=== PATIENT | female | born 1940 | race Caucasian/White ===

== ENCOUNTER 2017-01-13 01:49 | Observation (INO) | payer MEDICARE, OTHER ==
[2017-01-13 03:08] LABS: Anion Gap 15 mmol/L (10-20); BUN (Urea Nitrogen) 13 mg/dL (9.8-20.1); Calc. Creatinine Clearance 0 mL/min (70-130); Calcium 8.9 mg/dL (7.8-10.44); Carbon Dioxide 24 mmol/L (23-31); Chloride 100 mmol/L (98-107); Estimated GFR-MDRD 82; Magnesium 2.7 mg/dL (1.6-2.6)
[2017-01-13 04:17] LABS: Bilirubin Negative (Negative); Blood, Urine Negative (Negative); Glucose, Urine (Dipstick) Negative (Negative); Ketone, Urine Trace mg/dL (Negative); Nitrite Negative (Negative); Protein, Urine (Dipstick) Negative (Neg-Trace); Urobilinogen 0.2 mg/dL (0.2-1.0)
[2017-01-13] MEDS ORDERED: methylPREDNISolone Sod Succ/PF 125 MG/2 ML VIAL IVP SCH (06:45)
[2017-01-13] MEDS ORDERED: Acetaminophen 325 MG TAB PO PRN (07:41)
[2017-01-13 07:51] VITALS: BMI 32.5
[2017-01-13 08:25] LABS: Troponin I Less than 0.010 ng/mL (< 0.028)
[2017-01-13] MEDS ORDERED: Senokot 8.6 MG TAB PO PRN (10:28)
--- NOTE | 2017-01-13 10:47 | HP ---
ADMITTING PHYSICIAN: Dr. René Choudhury PRIMARY CARE PHYSICIAN: Dr. Casiano CHIEF COMPLAINT: Cough, shortness of breath. HISTORY OF PRESENT ILLNESS: The patient is a pleasant 76-year-old female with history of hypertensio n and possible COPD. The patient reports that 4-5 days she began to experience excessive coughing. She has also noticed some green sputum, her disintegrator feeder, Dr. Casiano, has prescribed doxycycline. Sh e reports that she had not received any relief and presented to the ER for the aforementioned symptom s. The patient was seen and assessed at [place] [facility] and EKG and chest x-ray were performed and t he patient was noted to have a prolonged QT interval of approximately 514 milliseconds and she was ad mitted for assessment of this situation. REVIEW OF SYSTEMS: The following complete review of systems was negative, unless otherwise mentioned in the HPI or below: Constitutional: Weight loss or gain, ability to conduct usual activities. Skin: Rash, itching. Eyes: Double vision, pain. ENT/Mouth: Nose bleeding, neck stiffness, pain, tenderness. Cardiovascular: Palpitations, dyspnea on exertion, orthopnea. Respiratory: Shortness of breath, wheezing, cough, hemoptysis, fever or night sweats. Gastrointestinal: Poor appetite, abdominal pain, heartburn, nausea, vomiting, constipation, or diarrhea. Genitourinary: Urgency, frequency, dysuria, nocturia. Musculoskeletal: Pain, swelling. Neurologic/Psychiatric: Anxiety, depression. Allergy/Immunologic: Skin rash, bleeding tendency. PAST MEDICAL HISTORY: Hypertension, hyperlipidemia, chronic bronchitis. PAST SURGICAL HISTORY: Positive for left knee replacement, x2, appendectomy, hysterectomy, left breast lumpectomy. PSYCHIATRIC HISTORY: No previous psychiatric history. SOCIAL HISTORY: The patient drinks rarely. Denies drug use. She is currently still smoking at this time and has been smoking half a pack for approximately 15 years. FAMILY HISTORY: Reviewed and noncontributory to this case. DRUG ALLERGIES: PENICILLINS. HOME MEDICATIONS: Include aspirin 81 mg every day, natural Q10 10 mg every day, albuterol inhaler, l osartan 12.5 mg every day, prednisone 20 mg every day, Lexapro 20 mg every day, Crestor 10 mg at bedt davian, Montelukast 10 mg every day. PHYSICAL EXAMINATION: VITAL SIGNS: Temperature of 98.4, blood pressure 138/82, pulse 94, respirations 20, satting 94% on r oom air. GENERAL: She is in no acute distress. HEENT: Normocephalic, atraumatic. Eyes normal, PERRL. Extraocular muscles intact. NECK: Supple, full range of motion. Trachea midline. RESPIRATORY: There was bilateral expiratory wheezing, otherwise clear to auscultation. CARDIOVASCULAR: Regular rate and rhythm, no murmurs, regurg or gallops. ABDOMEN: Nontender, nondistended. Positive bowel sounds. EXTREMITIES: No clubbing, cyanosis or edema. NEUROLOGIC: No focal deficits. Cranial nerves II-XII grossly intact. SKIN: Skin is warm, dry, normal in color. PSYCHIATRIC: Normal affect. LABORATORY AND IMAGES: Once again, 12 lead EKG performed in the emergency department showed a prolon ged QTC of 514 milliseconds, which was an acute change. Chest x-ray shows no acute pulmonary disease . CMP shows sodium of 138, potassium 3.2, chloride 99, CO2 97, BUN 11, creatinine 0.66, glucose 120, calcium 9.0. Magnesium 2.7. CBC shows a white count 15, hemoglobin 12.9, hematocrit 38.3, platelet count 308, AST 32, ALT 39. BNP of 30.3, CK-MB of 1.0, troponin I less than 0.01. ASSESSMENT AND PLAN: 1. Chronic obstructive pulmonary disease exacerbation. 2. Prolonged QTC interval. 3. Hypertension. PLAN: The patient admitted to observation. We will continue to rule out for acute ischemic syndrome . Her magnesium is within normal limits at this time. The prolonged QT interval, may be secondary t o adverse effect from medication. Nevertheless, we will have Cardiology evaluation take place. We w ill also continue to rule out for ischemic condition.
[2017-01-13 11:20] LABS: Troponin I Less than 0.010 ng/mL (< 0.028)
--- NOTE | 2017-01-13 14:03 | CON ---
DATE OF CONSULTATION: 01/13/2017 The patient is a 76-year-old woman with a history of hypertension and carotid artery disease, who presented with dyspnea and was noted to have abnormal electrocardiogram. The patient has a history of cerebrovascular disease. The patient has a long history of tobacco abuse. She was recently diagnosed with bronchitis and started on doxycycline. The patient went to the emergency room when she felt weak and dyspneic. She was noted to have a prolonged QT interval and admitted for further evaluation. The patient denied having any palpitations. The patient denies having any chest pain. PAST MEDICAL HISTORY: 1. Cerebrovascular disease. 2. Hypertension. 3. Dyslipidemia. 4. Chronic obstructive pulmonary disease. 5. Depression. PAST SURGICAL HISTORY: , lumpectomy, hysterectomy, and appendectomy. SOCIAL HISTORY: The patient continues to abuse tobacco. ALLERGIES: PENICILLIN. MEDICATIONS ON ADMISSION: Lexapro 20 daily, Crestor 10 at bedtime, prednisone 20 daily, losartan 12.5 daily, aspirin 81 daily, and doxycycline 100 b.i.d. FAMILY HISTORY: No strong family history of coronary artery disease. REVIEW OF SYSTEMS: A 10-point system otherwise unremarkable. PHYSICAL EXAMINATION: GENERAL: This is a mildly ill-appearing woman. VITAL SIGNS: With a blood pressure of 121/70. NECK: Showed no jugular venous distention. LUNGS: Have coarse breath sounds bilateral. HEART: Regular rate and rhythm, normal S1 and S2 with no murmurs. ABDOMEN: Nondistended. EXTREMITIES: Showed trace edema. SKIN: Warm and dry. NEUROLOGIC EXAM: Nonfocal. VASCULAR: Radial related pulses are 2+. LABORATORY DATA: Sodium 135, potassium 3.6, chloride 100, bicarbonate 24, BUN 13, creatinine is 0.7, troponin less than 0.01. Her white blood cell count was 15.0, hemoglobin 12.9, hematocrit 38.3, and her platelets are 308. BNP was 30. EKG revealed normal sinus rhythm with a prolonged QT interval approximately 500. IMPRESSION: 1. Chronic obstructive pulmonary disease exacerbation. 2. Prolonged QT interval. 3. Cerebrovascular disease. 4. Hypertension. 5. Dyslipidemia. 6. Depression. This patient presents with a prolonged QT interval. She was recently placed on doxycycline which probably interacted with Lexapro. We would discontinue this antibiotic. We would hold the patient's Paxil if her QTC remains elevated. We will follow this patient with you through her hospitalization. [facility]
[2017-01-13 16:10] VITALS: BP 132/61; TEMP 98.3
[2017-01-13] MEDS ORDERED: Mometasone/Formoterol 120 PUFF INHALER INH SCH (18:30)
[2017-01-13] MEDS ORDERED: FLU VACC TS2017-18 (>65YR) 0.5 ML SYRINGE IM ONE (21:00)
[2017-01-13] MEDS ORDERED: Ubidecarenone 50 MG CAP PO SCH (21:00)
[2017-01-13] MEDS ORDERED: Non-Formulary Item 1 EACH (Budesonide-Formoterol [Symbicort 160-4.5] 2 PUFF) INH SCH (21:00)
[2017-01-13] MEDS ORDERED: Rosuvastatin 10 MG TAB PO SCH (21:00)
[2017-01-13] MEDS ORDERED: Montelukast Sodium 10 mg Tablet PO SCH (21:00)
[2017-01-13] MEDS ORDERED: SENNOSIDES PO SCH (21:00)
[2017-01-13] MEDS ORDERED: ROSUVASTATIN CALCIUM 10 MG PO SCH (21:00)
[2017-01-13] MEDS ORDERED: Senokot 8.6 MG TAB PO SCH (21:00)
[2017-01-13] MEDS ORDERED: Non-Formulary Item 1 EACH (Ubidecarenone [Coq-10] 100 MG) PO SCH (21:00)
--- NOTE | 2017-01-14 01:18 | DIS ---
DATE OF ADMISSION: 01/13/2017 DATE OF DISCHARGE: 01/13/2017 CHIEF COMPLAINT: Shortness of breath, cough. PRIMARY DISCHARGE DIAGNOSES: 1. Prolonged QT interval. 2. Chronic obstructive pulmonary disease. 3. Hypertension. HOSPITAL COURSE: The patient was admitted after an incidental finding of a prolonged QT was noted on EKG. Cardiology was consulted and it was felt that the patient's prolonged QT interval was from an interaction of the doxycycline and Lexapro. The patient had repeat EKGs with normal QT interval. Isis olmedo was deemed stable for discharge from Cardiology's viewpoint once the doxycycline and the SSRI were held. Patient denied any chest pain or any palpitations during her hospital stay. The patient will be discharged home and instructed to refrain from using the doxycycline. She will also be instructed to refrain from using her Lexapro until Tuesday. DISPOSITION: To home. DISCHARGE DIET: Cardiac, heart healthy. DISCHARGE MEDICATIONS: She is to resume her home medications except for doxycycline and she is to ho ld her Lexapro until TuesdayJanuary 16. FOLLOWUP: The patient is to follow up with her PCP within 7 days. PHYSICAL EXAMINATION: HEENT: Normocephalic, atraumatic. CARDIAC: Regular rate and rhythm. LUNGS: Clear to auscultation. ABDOMEN: Nontender, nondistended. EXTREMITIES: No clubbing, cyanosis or edema. CONSULTANTS: Dr. Tolentino, Cardiology. PROCEDURES: None.
[2017-01-14] MEDS ORDERED: LUT PO SCH (09:00)
[2017-01-14] MEDS ORDERED: Non-Formulary Item 1 EACH (Losartan/Hydrochlorothiazide [Losartan-Hctz 100-12.5 Mg Tab] 1 PO SCH (09:00)
[2017-01-14] MEDS ORDERED: [UNRECOGNIZED DRUG - OTHER] PO SCH (09:00)
[2017-01-14] MEDS ORDERED: Non-Formulary Item 1 EACH (Cholecalciferol (Vitamin D3) [Vitamin D3] 5,000 UNIT) PO SCH (09:00)
[2017-01-14] MEDS ORDERED: LYCOPENE PO SCH (09:00)
[2017-01-14] MEDS ORDERED: Aspirin 81 mg Enteric Coated Tablet PO SCH ×2 (09:00)
[2017-01-14] MEDS ORDERED: PATIENT'S HOME MEDICATION PO SCH (09:00)
[2017-01-14] MEDS ORDERED: predniSONE 20 MG TAB PO SCH (09:00)
[2017-01-14] MEDS ORDERED: Hydrochlorothiazide 25 MG TAB PO SCH (09:00)
[2017-01-14] MEDS ORDERED: Escitalopram Oxalate 20 mg Tablet PO SCH (09:00)
[2017-01-14] MEDS ORDERED: MULTIVIT MIN PO SCH (09:00)
[2017-01-14] MEDS ORDERED: Losartan 25 MG TAB PO SCH (09:00)
[2017-01-14] MEDS ORDERED: Multivitamin W/ Minerals 1 TAB PO SCH (09:00)
[2017-01-14] MEDS ORDERED: Non-Formulary Item 1 EACH (Gluc Su/Chondro Su A/Vit C/Mn [Glucosamine 1,500 Complex Capsu PO SCH (09:00)
--- NOTE | 2017-02-26 10:41 | EKG ---
Test Reason : Blood Pressure : / mmHG Vent. Rate : 085 BPM Atrial Rate : 085 BPM P-R Int : 182 ms QRS Dur : 088 ms QT Int : 432 ms P-R-T Axes : 081 040 026 degrees QTc Int : 514 ms Sinus rhythm with Premature atrial complexes Prolonged QT Abnormal ECG Confirmed by SEEMA BENAVIDES M.D. ([id number]), phone technician CORNEL PERRIN ([id number]) on 02/26/2017 10:40:47 AM Referred By: Confirmed By:SEEMA BENAVIDES M.D.
--- NOTE | 2017-02-26 10:41 | EKG ---
Test Reason : Blood Pressure : / mmHG Vent. Rate : 083 BPM Atrial Rate : 083 BPM P-R Int : 180 ms QRS Dur : 098 ms QT Int : 452 ms P-R-T Axes : 076 041 031 degrees QTc Int : 531 ms Sinus rhythm with Premature atrial complexes ST abnormality, possible digitalis effect Prolonged QT Abnormal ECG Confirmed by SEEMA BENAVIDES M.D. ([id number]), manuscript editor CORNEL PERRIN ([id number]) on 02/26/2017 10:40:46 AM Referred By: Confirmed By:SEEMA BENAVIDES M.D.
== END 2017-01-13 17:35 | disposition home or self-care (01) ==
LOC: ERS 01:49 → 2SW 04:14
PROVIDERS: ADMIT Internal Medicine; ATTEND Internal Medicine
DX: J44.9 Chronic obstructive pulmonary disease, unspecified (principal); I45.81 Long QT syndrome; I10 Essential (primary) hypertension; Z86.73 Personal history of transient ischemic attack (TIA), and cerebral infarction without residual deficits; E78.5 Hyperlipidemia, unspecified; F32.9 Major depressive disorder, single episode, unspecified; F17.200 Nicotine dependence, unspecified, uncomplicated; Z88.0 Allergy status to penicillin; Z79.2 Long term (current) use of antibiotics; Z79.82 Long term (current) use of aspirin; Z79.899 Other long term (current) drug therapy; Z90.49 Acquired absence of other specified parts of digestive tract; Z90.710 Acquired absence of both cervix and uterus; Z98.891 History of uterine scar from previous surgery; Z98.890 Other specified postprocedural states
CPT/HCPCS: 80048; 81003; 83735; 84484 ×2; 87040; 87077; 87086; 87149 ×2; 93005; 94640 ×2; 94760; 96374; 96375; 99285; G0378; 36415; 93010; A4216; J0696; J2920; J7620

== ENCOUNTER 2017-05-06 11:05 | Outpatient (CLI) | payer MEDICARE, OTHER ==
--- NOTE | 2017-05-06 11:28 | RAD ---
CHEST 2 VIEWS: DATE: 01/06/17. HISTORY: Dyspnea. FINDINGS: Normal cardiac silhouette. The pulmonary vessels and hilum are normal. Costophrenic angles are eduardo r. Chronic change in the lung bases. Stable hyperinflation. No pneumothorax or osseous abnormaliti es. IMPRESSION: No acute cardiopulmonary process. POS: [facility]
== END 2017-05-06 11:06 | disposition home or self-care (01) ==
LOC: RAD 11:05
PROVIDERS: ATTEND Internal Medicine Critical Care Medicine
DX: R06.00 Dyspnea, unspecified (principal)
CPT/HCPCS: 71046

== ENCOUNTER 2017-05-26 12:32 | Outpatient (CLI) | payer MEDICARE, OTHER ==
--- NOTE | 2017-05-26 14:40 | RAD ---
TWO VIEWS CHEST: INDICATIONS: History of dyspnea. FINDINGS/IMPRESSION: No acute cardiopulmonary abnormality. Stable chronic lung changes when compared to the prior study d ated 05/06/2017. POS: [facility]
== END 2017-05-26 12:33 | disposition home or self-care (01) ==
LOC: RAD 12:32
PROVIDERS: ATTEND Internal Medicine Critical Care Medicine
DX: R06.00 Dyspnea, unspecified (principal); R91.8 Other nonspecific abnormal finding of lung field
CPT/HCPCS: 71046

== ENCOUNTER 2017-08-11 09:15 | Outpatient (CLI) | payer MEDICARE, OTHER ==
--- NOTE | 2017-08-11 11:00 | RAD ---
CHEST 2 VIEWS: HISTORY: Dyspnea. COMPARISON: 05/26/17. FINDINGS: Cardiac silhouette and pulmonary vasculature are upper limits of normal. Mediastinum is midline. Mi ld bibasilar atelectasis. No confluent airspace consolidation, pneumothorax, or pleural fluid. IMPRESSION: Borderline peripheral vascular disease. No florid edema is evident. POS: [facility]
== END 2017-08-11 09:16 | disposition home or self-care (01) ==
LOC: RAD 09:15
PROVIDERS: ATTEND Internal Medicine Critical Care Medicine
DX: R06.00 Dyspnea, unspecified (principal); I73.9 Peripheral vascular disease, unspecified
CPT/HCPCS: 71046

== ENCOUNTER 2017-09-18 18:21 | Observation (INO) | payer MEDICARE, OTHER ==
[2017-09-18] MEDS ORDERED: Magnesium 2 GM/NS 0.9% 100 ML 2 GM in Premix Bag 1 BAG IVPB SCH (19:15)
[2017-09-18 19:40] LABS: #Basophils 0.1 thou/uL (0.0-0.2); #Eosinphils 0.6 thou/uL (0.0-0.7); #Lymphocytes 1.5 thou/uL (1.20-3.40); #Monocytes 0.2 thou/uL (0.11-0.59); #Neutrophils 11.5 thou/uL (1.40-6.50); %Basophils 0.5 % (0.0-1.0); %Lymphocytes 10.7 % (21.0-51.0); %Monocytes 1.4 % (0.0-10.0); %Neutrophils 83.3 % (42.0-75.0); Hemoglobin 14.3 g/dL (12.0-16.0); Mean Corpuscular HGB CONC 33.7 g/dL (32.0-36.0); Mean Corpuscular Hemoglobin 30.5 pg (27.0-31.0); Mean Corpuscular Volume 90.5 fL (78.0-98.0); Mean Platelet Volume 7.5 fL (7.4-10.4); Platelet Count 316 thou/uL (130-400); RBC Distribution Width 12.4 % (11.5-14.5); Red Blood Cell (RBC) Count 4.69 mill/uL (4.20-5.40); White Blood Cell (WBC) Count 13.8 thou/uL (4.8-10.8)
[2017-09-18 20:02] LABS: ALT (SGPT) 14 U/L (8-55); AST (SGOT) 20 U/L (5-34); Albumin 4.2 g/dL (3.4-4.8); Alkaline Phosphatase 111 U/L (40-150); Anion Gap 16 mmol/L (10-20); BUN (Urea Nitrogen) 11 mg/dL (9.8-20.1); Bilirubin, Total 0.4 mg/dL (0.2-1.2); Calc. Creatinine Clearance 0 mL/min (70-130); Calcium 9.6 mg/dL (7.8-10.44); Carbon Dioxide 24 mmol/L (23-31); Chloride 101 mmol/L (98-107); Estimated GFR-MDRD 63; Globulin 3.7 g/dL (2.4-3.5); Glucose 112 mg/dL (83-110); Lipase 21 U/L (8-78); Magnesium 2.4 mg/dL (1.6-2.6); Potassium 3.6 mmol/L (3.5-5.1); Protein, Total 7.9 g/dL (6.0-8.3); Sodium 137 mmol/L (136-145)
--- NOTE | 2017-09-18 20:02 | RAD ---
PORTABLE CHEST: History: Chest pain. FINDINGS: Lung babin are clear. Vascular markings are normal. Heart and mediastinum are unremarkable. IMPRESSION: Unremarkable chest. POS: [facility]
[2017-09-18 20:06] LABS: CKMB 1.8 ng/mL (0-6.6); Troponin I 0.013 ng/mL (< 0.028)
[2017-09-18] MEDS ORDERED: Albuterol Sulfate 2.5 mg/3 ml Neb ONE ×4 (20:12)
[2017-09-18 23:24] LABS: Bilirubin Negative (Negative); Blood, Urine Small (Negative); Clarity CLOUDY (Clear); Glucose, Urine (Dipstick) Negative (Negative); Leukocyte Small (Negative); Nitrite Negative (Negative); Protein, Urine (Dipstick) 30 mg/dL (Neg-Trace); Specific Gravity, Urine 1.023 (1.002-1.036); Urobilinogen 0.2 mg/dL (0.2-1.0)
[2017-09-18 23:28] LABS: Bacteria/HPF None Seen HPF (None Seen); WBC/HPF 21-50 HPF (0-3)
[2017-09-18 23:29] LABS: Pathc Cast-AUWi Flag 19.33 (0-2.49)
[2017-09-18 23:30] LABS: Hyaline Casts/LPF 7-10 HYALINE CAST LPF (0-3 Hyaline)
[2017-09-19] MEDS ORDERED: Sodium Chloride 0.45% 1,000 ML IV SCH (01:30)
[2017-09-19] MEDS ORDERED: predniSONE 20 MG TAB PO SCH (08:00)
[2017-09-19] MEDS ORDERED: Calcium Carbonate 500 MG ChewTAB PO PRN (08:51)
[2017-09-19] MEDS ORDERED: Mag-Al 1200 mg/1200 mg/30 ML UDCUP PO PRN (08:51)
[2017-09-19] MEDS ORDERED: Senokot 8.6 MG TAB PO PRN (08:51)
[2017-09-19] MEDS ORDERED: Acetaminophen 325 MG TAB PO PRN (08:51)
[2017-09-19] MEDS ORDERED: hydrALAZINE 20 MG/ML VIAL SLOW IVP PRN (08:57)
[2017-09-19] MEDS ORDERED: Non-Formulary Item 1 EACH (Losartan/Hydrochlorothiazide [Losartan-Hctz 100-12.5 Mg Tab] 1 PO SCH (09:00)
[2017-09-19] MEDS ORDERED: Azithromycin 250 MG TAB PO SCH (09:00)
[2017-09-19] MEDS: Famotidine 20 MG TAB PO SCH (09:18)
[2017-09-19] MEDS: Aspirin 81 mg Enteric Coated Tablet PO SCH (09:18)
[2017-09-19] MEDS: Escitalopram Oxalate 20 mg Tablet PO SCH (09:18)
[2017-09-19] MEDS: Losartan 25 MG TAB PO SCH ×2 (09:19→21:09)
[2017-09-19] MEDS: Ubidecarenone 50 MG CAP PO SCH ×2 (09:19→21:10)
--- NOTE | 2017-09-19 09:23 | HP ---
PRIMARY CARE PHYSICIAN: Dr. Allen PRIMARY SENIOR MATERIALS PLANNER: Dr. Casiano CHIEF COMPLAINT: Shortness of breath. HISTORY OF PRESENT ILLNESS: The patient is a 76-year-old white female with COPD, presented to the em ergency room with shortness of breath that has been ongoing for last 2-3 days. Her shortness of idalia th got worse today for which she presented to the emergency room. She also had some cough productive of thick whitish phlegm. She also had audible wheezing. No leg swelling, orthopnea, paroxysmal noc turnal dyspnea reported. She denies any sick contacts. No immobilization, travel, fever, or chills reported. In the emergency room her vital signs showed temperature 98.5, respirations 16, pulse rate of 88 with blood pressure 125/78. Her O2 sat on room air was 91%. Her x-ray was negative for infiltrate. She received nebulizer treatment along with magnesium and Levaquin in the emergency room. PAST MEDICAL HISTORY: 1. Hypertension 2. Hyperlipidemia. 3. Chronic obstructive pulmonary disease. 4. Gastroesophageal reflux disease. 5. Anxiety, depression. 6. Dyslipidemia. 7. Tobacco dependence. PAST SURGICAL HISTORY: 1. Appendectomy. 2. Gastric bypass. 3. Left knee replacement. 4. Breast lumpectomy. 5. Hysterectomy. 6. Appendectomy. 7. x2. ALLERGIES: The patient is allergic to PENICILLIN, reaction unknown. CURRENT HOME MEDICATIONS: The patient is on aspirin, Symbicort, vitamin D3, Cardizem XT 120 mg daily , Lexapro, DuoNebs, losartan/HCTZ, Crestor and Coenzyme Q10. SOCIAL HISTORY: The patient currently lives at home close to her family. Continues to smoke. Drink s alcohol socially, no drug use. CODE STATUS: She is FULL CODE, makes her own decision with the help of her family. FAMILY HISTORY: Negative for any inheritable diseases. REVIEW OF SYSTEMS: The following complete review of systems was negative, unless otherwise mentioned in the HPI or below: Constitutional: Weight loss or gain, ability to conduct usual activities. Skin: Rash, itching. Eyes: Double vision, pain. ENT/Mouth: Nose bleeding, neck stiffness, pain, tenderness. Cardiovascular: Palpitations, dyspnea on exertion, orthopnea. Respiratory: Shortness of breath, wheezing, cough, hemoptysis, fever or night sweats. Gastrointestinal: Poor appetite, abdominal pain, heartburn, nausea, vomiting, constipation, or diarrhea. Genitourinary: Urgency, frequency, dysuria, nocturia. Musculoskeletal: Pain, swelling. Neurologic/Psychiatric: Anxiety, depression. Allergy/Immunologic: Skin rash, bleeding tendency. PHYSICAL EXAMINATION: VITAL SIGNS: As discussed above. GENERAL: A 76-year-old female in minimal respiratory distress, able to complete short sentences. HEENT: Head atraumatic, normocephalic, Sclerae are anicteric. Moist mucous membranes. Mild erythem a over the posterior pharynx. NECK: Supple, no JVD, no carotid bruit. LUNGS: Showed diffuse expiratory wheezing with rhonchi. No rales appreciated. Lungs were symmetric al. No significant accessory muscle use noted. HEART: S1, S2 present. Regular rate and rhythm, no significant rubs, gallops or murmurs appreciated . ABDOMEN: Soft, nontender, bowel sounds present. EXTREMITIES: No edema or calf tenderness. NEUROLOGIC: Grossly nonfocal, moves all 4 extremities. PSYCHIATRY: Alert, awake, oriented x3. SKIN: Warm and dry. LYMPH NODES: No palpable lymph nodes in the neck. PERIPHERAL VASCULAR: Radial pulses palpable bilaterally. MUSCULOSKELETAL: No joint swelling or tenderness. LABORATORY FINDINGS: CBC showed WBC 13.8 with hemoglobin 14.3, hematocrit 42.5, platelet 316. Chemi stry showed sodium 137, potassium 3.6, chloride 101, bicarbonate 24, BUN 11, creatinine 0.88. LFTs i n normal range. Troponin negative. BNP 3.0. Urinalysis showed hyaline cast with 21-50 WBCs. Chest x-ray by my review was negative for infiltrate. EKG by my review showed sinus rhythm without signif icant ST-T wave changes. IMPRESSION: 1. Chronic obstructive pulmonary disease exacerbation. 2. Urinary tract infection. 3. Hypertension. 4. Hyperlipidemia. 5. Ongoing tobacco abuse. 6. Anxiety and depression. 7. Gastroesophageal reflux disease. 8. Obesity with a BMI of 34.7. 9. Chronic kidney disease stage 2. 10. Leukocytosis, probably secondary to #1. PLAN: The patient will be monitored as a 23-hour observation. We will continue antibiotics. Contin ue steroids. O2 supplementation as needed. Nebulizer treatment every 4 hours. We will resume all o f her home medications. Urine cultures are pending at this time. Plan of care was discussed with the daughter over the phone. She stated understanding. Follow up with Dr. Casiano on , 09/22/2017 at 10:15 a.m. has been arranged.
[2017-09-19] MEDS: Mometasone/Formoterol 120 PUFF INHALER INH SCH (20:11)
[2017-09-19] MEDS: Rosuvastatin 10 MG TAB PO SCH (21:10)
--- NOTE | 2017-09-20 01:08 | CON ---
DATE OF CONSULTATION: 09/19/[address] Casiano's. HISTORY OF PRESENT ILLNESS: A 76-year-old female from [place], who presented with inc reasing shortness of breath, coughing, dizziness. She went to the shower, became markedly short of b reath. She took several neb treatments. She was wheezing and coughing. She quit smoking 6 weeks ago. She tells me that, on most days, she i s able to walk at least a block without getting markedly short of breath. In fact, she was scheduled to see Dr. Casiano in the office today. PAST MEDICAL HISTORY: Pertinent for COPD, hypertension, hyperlipidemia, high cholesterol. PAST SURGICAL HISTORY: Past surgeries including appendix, gastric bypass, hysterectomy, orthopedic l eft knee total, , left lumpectomy. MEDICATIONS: List of medicines from home includes aspirin, Symbicort, Cardizem, Lexapro 20, DuoNeb, vitamin CQ. She is presently started on prednisone 20, Levaquin, neb treatment, and Dulera. She is still short of breath this morning, but better. TOBACCO: As noted, quit 6 weeks ago. ALLERGIES: PENICILLIN. ALCOHOL: None. REVIEW OF SYSTEMS: Ten-point negative. PHYSICAL EXAMINATION: VITAL SIGNS: Sats are 93 on room air, blood pressure 146/69, pulse 107, temperature 98. CHEST: Minimal wheezing. CARDIAC: Normal S1 and S2. No gallops. ABDOMEN: Soft. No masses. LABORATORY DATA: White count 13,000, H and H 14 and 42, platelet count is normal. Electrolytes are normal. IMPRESSION: 1. bronchitis. Chest x-ray was normal. 2. Tobacco abuse. 3. Hypertension. PLAN: I agree with present neb treatment, steroids, Dulera. We will notify Dr. Casiano. Consultation note, 70 minutes, 50% in direct patient care.
[2017-09-20 06:05] LABS: Anion Gap 13 mmol/L (10-20); BUN (Urea Nitrogen) 14 mg/dL (9.8-20.1); Calc. Creatinine Clearance 88 mL/min (70-130); Calcium 8.8 mg/dL (7.8-10.44); Carbon Dioxide 25 mmol/L (23-31); Chloride 105 mmol/L (98-107); Estimated GFR-MDRD 74; Glucose 104 mg/dL (83-110); Sodium 139 mmol/L (136-145)
[2017-09-20 06:53] LABS: Band 8 % (5-11); Hemoglobin 11.8 g/dL (12.0-16.0); Lymphocytes 14 % (21-51); MDiff Complete? YES; Mean Corpuscular HGB CONC 32.8 g/dL (32.0-36.0); Mean Corpuscular Hemoglobin 29.6 pg (27.0-31.0); Mean Corpuscular Volume 90.4 fL (78.0-98.0); Mean Platelet Volume 7.8 fL (7.4-10.4); Monocytes 4 % (0-10); Neutrophil 74 % (42-75); Platelet Count 265 thou/uL (130-400); RBC Distribution Width 12.5 % (11.5-14.5); Red Blood Cell (RBC) Count 3.99 mill/uL (4.20-5.40); White Blood Cell (WBC) Count 19.1 thou/uL (4.8-10.8)
[2017-09-20] MEDS: Mometasone/Formoterol 120 PUFF INHALER INH SCH ×2 (07:03→18:45)
[2017-09-20] MEDS ORDERED: predniSONE 20 MG TAB PO SCH ×2 (08:00→19:30)
[2017-09-20] MEDS: Aspirin 81 mg Enteric Coated Tablet PO SCH (08:13)
[2017-09-20] MEDS: Losartan 25 MG TAB PO SCH ×2 (08:14→21:04)
[2017-09-20] MEDS: Famotidine 20 MG TAB PO SCH (08:14)
[2017-09-20] MEDS: Multivitamin W/ Minerals 1 TAB PO SCH (08:15)
[2017-09-20] MEDS: Escitalopram Oxalate 20 mg Tablet PO SCH (08:15)
[2017-09-20] MEDS: Ubidecarenone 50 MG CAP PO SCH ×2 (08:16→21:05)
[2017-09-20] MEDS ORDERED: Polyethylene Glycol 3350 17 GM Packet PO PRN (16:44)
[2017-09-20] MEDS ORDERED: Milk Of Magnesia 30 ML UDCUP PO PRN (16:44)
--- NOTE | 2017-09-20 18:15 | PRG ---
DATE OF SERVICE: 09/20/2017 SUBJECTIVE: Ms. Ojeda is a 76-year-old female, I reviewed her presentation. She had an episode of r elatively acute shortness of breath, occurred on Tuesday. She felt was going to be a fatal event. Isis olmedo says she was so short of breath. She could not speak or get to her nebulizer. She did manage to get an ambulance called. She did her morning breathing treatment as usual, said she was unable to get her nebulizer. When EMS arrived, they gave her oxygen and breathing treatments, started fluids, says she is better, but not quite back to her baseline today. OBJECTIVE: VITAL SIGNS: She is afebrile, heart rate 97, respiratory rate 16, oximetry is 92 on room air, up to 95 this afternoon, and blood pressure 170/75. LUNGS: Distant and clear. CARDIOVASCULAR: Regular rhythm. ABDOMEN: Soft. IMPRESSION: Asthmatic bronchitis with severe potentially life-threatening exacerbation. PLAN: Continue with steroids, nebulizer treatments, antibiotics could be switched to p.o. antimicrob ials. I do not feel 20 mg of prednisone enough after this severe event. I do believe that she should stay in the hospital one more day. Hopefully, we can discharge her home in the morning.
--- NOTE | 2017-09-20 19:27 | PDOC.PN ---
- Subjective Encounter Start Date: 09/20/17 Encounter Start Time: 10:00 Patient seen and examined for COPD Exacerbation. Cough with mild production. No overnight events - Objective Resuscitation Status: Resuscitation Status FULL:Full Resuscitation MAR Reviewed: Yes Vital Signs & Weight: Vital Signs (12 hours) Temp Pulse Resp BP Pulse Ox 09/20/17 18:44 92 16 94 L 09/20/17 15:26 97.7 F 90 24 H 145/73 H 94 L 09/20/17 14:49 82 16 95 09/20/17 11:34 98.7 F 97 16 170/75 H 92 L 09/20/17 10:44 97.5 F L 88 20 157/70 H 97 09/20/17 10:33 68 16 95 09/20/17 10:15 94 L 09/20/17 08:15 88 09/20/17 08:00 97.5 F L 88 20 Weight Weight 189 lb 8 oz I&O: 09/19/17 09/20/17 09/21/17 06:59 06:59 06:59 Intake Total 1550 990 Output Total 3100 Balance -1550 990 Result Diagrams: 09/20/17 04:59 09/20/17 04:59 Additional Labs: Microbiology 09/18/17 23:05 Urine clean catch Urine Culture - Final NO GROWTH AT 36 HOURS 09/18/17 20:02 Venous blood - Left Hand Blood Culture - Preliminary NO GROWTH AT 48 HOURS 09/18/17 19:32 Venous blood - Left Hand Blood Culture - Preliminary NO GROWTH AT 48 HOURS Phys Exam - Physical Examination Constitutional: NAD Respiratory: no rales, wheezing present Cardiovascular: RRR, no rub Gastrointestinal: soft, non-tender, positive bowel sounds Musculoskeletal: no edema Neurological: moves all 4 limbs Dx/Plan - Plan DVT proph w/SCDs IMPRESSION: 1. Chronic obstructive pulmonary disease exacerbation. 2. Urinary tract infection. 3. Hypertension. 4. Hyperlipidemia. 5. Ongoing tobacco abuse. 6. Anxiety and depression. 7. Gastroesophageal reflux disease. 8. Obesity with a BMI of 34.7. 9. Chronic kidney disease stage 2. 10. Leukocytosis, probably secondary to #1. PLAN: Will continue prednisone - dose increased to 40 milligram daily Continue nebulizer treatments/O2 Cont Levaquin Leucocytosis probably due to steroids Will continue all other medications Tobacco cessation Urine culture negative. Review of Systems - Review of Systems Respiratory: Cough, SOB with Excertion, Sputum, Wheezing. negative: Dry, Shortness of Breath, Hemoptysis, Pleuritic Pain Cardiovascular: negative: chest pain, palpitations, orthopnea, paroxysmal nocturnal dyspnea, edema, light headedness, other Gastrointestinal: negative: Nausea, Vomiting, Abdominal Pain, Diarrhea, Constipation, Melena, Hematochezia, Other - Medications/Allergies Allergies/Adverse Reactions: Allergies Allergy/AdvReac Type Severity Reaction Status Date / Time Penicillins Allergy Rash Verified 09/19/17 01:40 Medications: Current Medications Acetaminophen (Tylenol) 650 mg PO Q4H PRN PRN Reason: Headache/Fever or Pain Al Hydroxide/Mg Hydroxide (Maalox) 30 ml PO Q6H PRN PRN Reason: Heartburn or Indigestion Last Admin: 09/19/17 17:34 Dose: 30 ml Albuterol/Ipratropium (Duoneb) 3 ml NEB [id number] [facility] Last Admin: 09/20/17 18:44 Dose: 3 ml Aspirin (Ecotrin) 162 mg PO DAILY [facility] Last Admin: 09/20/17 08:13 Dose: 162 mg Calcium Carbonate (Tums) 1,000 mg PO Q4H PRN PRN Reason: Heartburn or Indigestion Last Admin: 09/19/17 17:34 Dose: 1,000 mg Cholecalciferol (Vitamin D3) 5,000 units PO DAILY [facility] Last Admin: 09/20/17 08:14 Dose: 5,000 units Coenzyme Q10 (Coenzyme Q10) 100 mg PO BID [facility] Last Admin: 09/20/17 08:16 Dose: 100 mg Diltiazem HCl (Cardizem Cd) 120 mg PO DAILY [facility] Last Admin: 09/20/17 08:15 Dose: 120 mg Escitalopram Oxalate (Lexapro) 20 mg PO DAILY [facility] Last Admin: 09/20/17 08:15 Dose: 20 mg Famotidine (Pepcid) 20 mg PO DAILY [facility] Last Admin: 09/20/17 08:14 Dose: 20 mg Hydralazine HCl (Apresoline) 10 mg SLOW IVP Q4H PRN PRN Reason: SBP Greater Than 180 Iron/Minerals/Multivitamins (Theragran M) 1 tab PO DAILY [facility] Last Admin: 09/20/17 08:15 Dose: 1 tab Levofloxacin (Levaquin) 500 mg PO 0600 TIFFANIE Losartan Potassium (Cozaar) 50 mg PO BID TIFFANIE Last Admin: 09/20/17 08:14 Dose: 50 mg Magnesium Hydroxide (Milk Of Magnesium) 30 ml PO DAILYPRN PRN PRN Reason: Constipation Mometasone Furoate/Formoterol Fumar (Dulera 200 Mcg/5 Mcg Inhaler) 2 puff INH BID-RT TIFFANIE Last Admin: 09/20/17 18:45 Dose: 2 puff Polyethylene Glycol (Miralax) 17 gm PO DAILY PRN PRN Reason: Constipation Last Admin: 09/20/17 17:18 Dose: 17 gm Prednisone (Prednisone) 40 mg PO QAM-WM TIFFANIE Prednisone (Prednisone) 20 mg PO ONE TIFFANIE Rosuvastatin Calcium (Crestor) 10 mg PO HS [facility] Last Admin: 09/19/17 21:10 Dose: 10 mg Senna/Docusate Sodium (Senokot S) 1 tab PO BID TIFFANIE Sodium Chloride (Flush - Normal Saline) 10 ml IVF Q12HR [facility] Last Admin: 09/20/17 08:16 Dose: 10 ml Sodium Chloride (Flush - Normal Saline) 10 ml IVF PRN PRN PRN Reason: Saline Flush
[2017-09-20] MEDS: Senokot S 8.6-50 MG TAB PO SCH (21:05)
[2017-09-20] MEDS: Rosuvastatin 10 MG TAB PO SCH (21:05)
[2017-09-21] MEDS ORDERED: predniSONE 20 MG TAB PO SCH (08:00)
[2017-09-21] MEDS: Mometasone/Formoterol 120 PUFF INHALER INH SCH (08:20)
[2017-09-21] MEDS: Ubidecarenone 50 MG CAP PO SCH (08:23)
[2017-09-21] MEDS: Losartan 25 MG TAB PO SCH (08:23)
[2017-09-21] MEDS: Aspirin 81 mg Enteric Coated Tablet PO SCH (08:24)
[2017-09-21] MEDS: Senokot S 8.6-50 MG TAB PO SCH (08:25)
[2017-09-21] MEDS: Multivitamin W/ Minerals 1 TAB PO SCH (08:26)
[2017-09-21] MEDS: Famotidine 20 MG TAB PO SCH (08:26)
[2017-09-21] MEDS: Escitalopram Oxalate 20 mg Tablet PO SCH (08:26)
[2017-09-21] MEDS ORDERED: Saccharomyces boulardii 250 MG CAP PO SCH (09:00)
[2017-09-21 12:22] VITALS: BP 144/85; TEMP 98
--- NOTE | 2017-09-21 15:22 | PRG ---
DATE OF SERVICE: 09/21/2017 Claire Ojeda did well overnight. She has no complaints. LUNGS: Her lungs completely collapsed. She is clear now. She does not have a long expiratory phase . HEART: Regular rhythm. ABDOMEN: Soft. IMPRESSION: Chronic obstructive pulmonary disease exacerbation that was potentially life threatening . I believe she is stable for discharge. She will take prednisone 40 mg a day for 4 days, then 20 m g a day until she sees me at the tail end of next week. She will continue with her other breathing m edicines she has at home as before.
--- NOTE | 2017-09-21 23:27 | DIS ---
DATE OF ADMISSION: 09/19/2017 DATE OF DISCHARGE: 09/21/2017 CONDITION AT THE TIME OF DISCHARGE: Stable and improved. DISCHARGE DISPOSITION: Home. PRIMARY CARE PHYSICIAN: Michael Allen M.D. PRIMARY TIP INSERTER: Dr. Casiano. IN-HOUSE CONSULTATION: Pulmonary Medicine, Dr. Casiano. PROCEDURES DONE IN THE HOSPITAL: Chest x-ray which was unremarkable. DISCHARGE DIAGNOSES: 1. Acute on chronic obstructive pulmonary disease exacerbation with bronchitis. 2. Urinary tract infection. 3. Hypertension. 4. Dyslipidemia. 5. Tobacco abuse. 6. Anxiety and depression 7. Gastroesophageal reflux disease. 8. Obesity with a BMI of 34.7. 9. Chronic kidney disease, stage 2. DISCHARGE MEDICATIONS: Resume home medication as per the H&P. New medication as follows: Medrol Do sepak, Florastor 250 mg daily for 10 days and levofloxacin 500 mg p.o. daily for 7 more days. Please review admission H&P for home medications. None of the medications were changed. HISTORY OF PRESENTING ILLNESS: Ms. Ojeda is a very pleasant 76-year-old female with past medical his tory of COPD, hypertension, and dyslipidemia, who presented to the emergency room with complaints of worsening shortness of breath. She was hemodynamically stable upon presentation. Her oxygen saturat ion was 91% on room air. Chest x-ray was negative for infiltrate. She was diagnosed with a possible COPD exacerbation and was given nebulizer, magnesium and Levaquin in the emergency room and was admi tted for further evaluation and care. Pulmonary Medicine was consulted. Please see admission histor y and physical for further details. HOSPITAL COURSE: The patient had improvement in her symptoms with ongoing nebulizer, IV steroids and IV antibiotics. Her symptoms improved and she was monitored by Pulmonary Medicine doctors, Dr. Marrufo and Dr. Casiano in the hospital as well. As of this morning, she is back to her baseline and has been cleared for discharge. She was seen and examined prior to discharge. PHYSICAL EXAMINATION: VITAL SIGNS: This morning, temperature 98, heart rate 79-103, respirations 20-24, saturating 93% on room air, blood pressure 144/85. GENERAL: No acute distress, awake, alert, oriented x3. CHEST: Clear to auscultation without any wheezing, rales or rhonchi. CARDIOVASCULAR: Rate and rhythm is regular without any murmur, rubs or gallops. LABORATORY DATA: Troponin 0.013, BNP 30. Urine culture is negative at this time, blood culture is n egative at this time. Her urinalysis had multiple wbc's, but no bacteria. She also had multiple squ amous epithelial cells, so likely the urine sample was contaminated. She is on treatment with levofl oxacin for her bronchitis which will cover for any urinary bacteria as well. She is instructed to follow with her primary care physician for the results of the blood and final ur ine cultures. Discharge plan was discussed with the patient and she verbalized understanding.
--- NOTE | 2017-09-24 12:47 | EKG ---
Test Reason : Blood Pressure : / mmHG Vent. Rate : 097 BPM Atrial Rate : 097 BPM P-R Int : 180 ms QRS Dur : 084 ms QT Int : 386 ms P-R-T Axes : 080 042 061 degrees QTc Int : 490 ms Sinus rhythm with marked sinus arrhythmia Prolonged QT Abnormal ECG Confirmed by SHOSHANA ORTIZ ([id number]), clinical editor RED LEON ([id number]) on 09/24/2017 12:47:19 PM Referred By: Confirmed By:SHOSHANA ORTIZ
== END 2017-09-21 14:08 | disposition home or self-care (01) ==
LOC: ERS 18:21 → 2SW 23:54
PROVIDERS: ADMIT Hospitalist; ATTEND Hospitalist
DX: J44.1 Chronic obstructive pulmonary disease with (acute) exacerbation (principal); N39.0 Urinary tract infection, site not specified; E66.9 Obesity, unspecified; E78.5 Hyperlipidemia, unspecified; I12.9 Hypertensive chronic kidney disease with stage 1 through stage 4 chronic kidney disease, or unspecified chronic kidney disease; N18.2 Chronic kidney disease, stage 2 (mild); F41.8 Other specified anxiety disorders; K21.9 Gastro-esophageal reflux disease without esophagitis; D72.829 Elevated white blood cell count, unspecified; Z88.0 Allergy status to penicillin; Z68.34 Body mass index [BMI] 34.0-34.9, adult; Z87.891 Personal history of nicotine dependence; Z79.82 Long term (current) use of aspirin; Z79.899 Other long term (current) drug therapy
CPT/HCPCS: 71045; 80048; 80053; 82553; 83690; 83735; 83880; 84484; 85025 ×2; 87040; 87086; 93005; 94640 ×7; 94760; 96361 ×2; 96365; 96366; 96367; 97139 ×3; 99285; G0378 ×2; 36415; 81003; 81015; A4216; J1956; J3475; J7506; J7611; J7620

== ENCOUNTER 2017-11-30 10:57 | Outpatient (CLI) | payer MEDICARE, OTHER ==
--- NOTE | 2017-11-30 11:46 | RAD ---
TWO VIEWS CHEST: Comparison: 09-18-17 History: Dyspnea. FINDINGS: Normal cardiac silhouette. The pulmonary vessels and hilum are normal. Costophrenic angles are clear. Hyperinflation, with chronic changes. No consolidation or mass. No pneumothorax or osseous abnormali ties. IMPRESSION: Hyperinflation. Chronic changes. POS: [facility]
== END 2017-11-30 10:58 | disposition home or self-care (01) ==
LOC: RAD 10:57
PROVIDERS: ATTEND Internal Medicine Critical Care Medicine
DX: R06.00 Dyspnea, unspecified (principal); R91.8 Other nonspecific abnormal finding of lung field
CPT/HCPCS: 71046

== ENCOUNTER 2017-12-06 23:56 | Observation (INO) | payer MEDICARE, OTHER ==
[2017-12-07] MEDS ORDERED: Acetaminophen 325 MG TAB PO PRN (02:22)
[2017-12-07] MEDS ORDERED: Ondansetron HCl/PF 4 MG/2 ML Vial IVP PRN (02:22)
[2017-12-07] MEDS ORDERED: Sodium Chloride 0.9% 1,000 ML IV SCH (02:30)
--- NOTE | 2017-12-07 03:38 | HP ---
PRIMARY CARE PHYSICIAN: Michael Allen MD CODE STATUS: The patient is DNR/DNI as verified by patient, expressed to myself, and also independen tly verified by RN. TIME OF EVALUATION: 2:15 a.m. CHIEF COMPLAINT: Shortness of breath. HISTORY OF PRESENT ILLNESS: This is a 76-year-old female patient with past medical history of renteria ry artery disease, hypertension, and COPD, came to the hospital after having severe and gradually wor sening shortness of breath that started today, with no clear triggers, no alleviating factors, associ ated with cough and sputum production. The patient also had saturation radiation and presented to e ER. After receiving treatment, saturation has improved and has been above 90s. Patient was met at the bedside, she is still wheezing, but resting comfortable. REVIEW OF SYSTEMS: Constitutional: No fever, chills or generalized weakness. Respiratory: The pat ient has cough, sputum production, shortness of breath, wheezing. Cardiovascular: No chest pain or palpitation. Gastrointestinal: No nausea, vomiting, diarrhea or abdominal pain. Central nervous sy stem: No dizziness, headache or feeling lightheaded. Genitourinary: No burning on urination. Extr emities: No leg swelling. All other systems reviewed were negative except for the findings mentione d above. PAST MEDICAL HISTORY: As mentioned in the HPI. SOCIAL HISTORY: The patient denies smoking or drug use. She drinks socially. FAMILY HISTORY: Noncontributory for current presentation and was reviewed with the patient. PAST SURGICAL HISTORY: Lumpectomy, appendectomy, hysterectomy, back surgery, and left knee replaceme nt. PSYCHIATRIC HISTORY: Depression. ALLERGIES: To PENICILLIN. REPORTED MEDICATIONS: Aspirin, Symbicort, albuterol, losartan, prednisone, Lexapro, montelukast. PHYSICAL EXAMINATION: VITAL SIGNS: On presentation, blood pressure 150/63 with heart rate 96, respiratory rate was 18, tem perature 99. Pain was 5/10. Oxygen saturation 93% on room air. GENERAL APPEARANCE: The patient is alert and oriented, in no acute distress. HEENT: Normal conjunctivae. Moist oral mucosa. Anicteric. NECK: No JVD. RESPIRATORY: Bilateral air entry. Patient has wheezing bilaterally. No rales. Symmetric expansion . CARDIOVASCULAR: Normal rate and regular rhythm. No murmurs, no gallop, no edema. ABDOMEN: Soft, normal bowel sounds. MUSCULOSKELETAL: Baseline range of motion and strength. No tenderness. SKIN: Warm and intact. No pallor, rash or redness. Peripheral pulses are present. Capillary refil l seems to be intact. NEUROLOGIC: No evidence of any new focal weakness. Baseline speech. Cranial nerves seem to be inta ct. PSYCHIATRIC: The patient is in good mood. No anxiety. Oriented with optimal judgment. IMAGING STUDIES: Chest x-ray was reviewed and the patient had no acute process. LABORATORY DATA: Labs were reviewed. The patient has white count 10.7, hemoglobin 13.1, MCV 89, gilbert telet count 323. Coagulation was normal. Chemistry: Sodium 140, potassium 3.7, chloride 104, carbo n dioxide 25, anion gap 15, BUN 9, creatinine 0.8, GFR 69, glucose 87, calcium 9.4, total bilirubin 0 .5. The rest is negative. ASSESSMENT AND PLAN: The patient will be placed in the hospital with the following medical problems: 1. Chronic obstructive pulmonary disease exacerbation. The patient has increasing wheezing, shortne ss of breath, sputum production. He initially presented with saturation of 88%. At this point, this has resolved. Place the patient on antibiotics, steroids and nebulizers. We will adjust the treatm ent as needed if the patient does not improve. 2. Acute hypoxic respiratory failure on presentation with the saturation of 88% that is the reason w hy the patient has been placed in the hospital. This seems to have resolved after initial approach. We will monitor overnight and continue oxygen via nasal cannula. 3. Uncontrolled high blood pressure. We will reconcile home medications. We will adjust the treatm ent as needed. Systolic blood pressure was 150, so he presented with hypertension. 4. Hyperlipidemia. Low cholesterol diet is advised. Reconcile home medications. 5. History of coronary artery disease. This is chronic, seems to be stable. Reconcile home medicat ions. 6. Deep venous thrombosis prophylaxis.
[2017-12-07 04:35] LABS: #Lymphocytes 0.8 thou/uL (1.20-3.40); #Neutrophils 8.4 thou/uL (1.40-6.50); %Basophils 0.3 % (0.0-1.0); %Eosinophils 0.2 % (0.0-10.0); %Lymphocytes 8.4 % (21.0-51.0); %Monocytes 0.4 % (0.0-10.0); %Neutrophils 90.8 % (42.0-75.0); Hemoglobin 12.9 g/dL (12.0-16.0); Mean Corpuscular HGB CONC 32.5 g/dL (32.0-36.0); Mean Corpuscular Hemoglobin 29.6 pg (27.0-31.0); Mean Platelet Volume 8.8 fL (7.4-10.4); Platelet Count 284 thou/uL (130-400); RBC Distribution Width 12.4 % (11.5-14.5); Red Blood Cell (RBC) Count 4.35 mill/uL (4.20-5.40); White Blood Cell (WBC) Count 9.3 thou/uL (4.8-10.8)
[2017-12-07 05:03] LABS: Anion Gap 13 mmol/L (10-20); BUN (Urea Nitrogen) 12 mg/dL (9.8-20.1); Calc. Creatinine Clearance 79 mL/min (70-130); Calcium 9.4 mg/dL (7.8-10.44); Carbon Dioxide 25 mmol/L (23-31); Chloride 101 mmol/L (98-107); Estimated GFR-MDRD 65; Glucose 143 mg/dL (83-110); Potassium 4.1 mmol/L (3.5-5.1); Sodium 135 mmol/L (136-145)
[2017-12-07] MEDS: Mometasone/Formoterol 120 PUFF INHALER INH SCH ×2 (07:43→19:12)
[2017-12-07] MEDS ORDERED: Non-Formulary Item 1 EACH (Budesonide-Formoterol [Symbicort 160-4.5] 2 PUFF) INH SCH (09:00)
[2017-12-07] MEDS ORDERED: Losartan 25 MG TAB PO SCH (09:00)
[2017-12-07] MEDS ORDERED: Non-Formulary Item 1 EACH (Gluc Su/Chondro Su A/Vit C/Mn [Glucosamine 1,500 Complex Capsu PO SCH (09:00)
[2017-12-07] MEDS: Enoxaparin Sodium 40 MG/0.4 ML SYRINGE SC SCH (09:20)
[2017-12-07] MEDS: Losartan 25 MG TAB PO SCH (09:20)
[2017-12-07] MEDS: Ubidecarenone 50 MG CAP PO SCH ×2 (09:21→20:38)
[2017-12-07] MEDS: Saccharomyces boulardii 250 MG CAP PO SCH (09:21)
[2017-12-07] MEDS: Multivitamin W/ Minerals 1 TAB PO SCH (09:22)
[2017-12-07] MEDS: Escitalopram Oxalate 20 mg Tablet PO SCH (09:22)
[2017-12-07] MEDS: Aspirin 81 mg Enteric Coated Tablet PO SCH (09:22)
[2017-12-07] MEDS: Hydrochlorothiazide 25 MG TAB PO SCH (09:23)
[2017-12-07] MEDS: predniSONE 20 MG TAB PO SCH (09:23)
--- NOTE | 2017-12-07 14:22 | PDOC.EVN ---
Event Note - Event Note Event Note: Pt seen and examined. chart reviewed. Reports that she still is not at baseline.feels chest tightness CTA b/l.no wheezing or crackles. cont Rx as per H&P. IV abx,steroids.Nebs,dulera consult PCCM. Resting and ambulatory O2 sats will be checked
--- NOTE | 2017-12-07 20:11 | CON ---
DATE OF CONSULTATION: 12/07/2017 HISTORY OF PRESENT ILLNESS: Ms. Ojeda is a woman who is very pleasant that I followed for quite some time with predominantly asthma. PFTs done in 2013 showed a normal FEV1 after bronchodilators and a normal FVC after bronchodilators. Her best FEV1 is 1.67 liters. As expected, she had decreased mid flow. She did have some mild air trapping. Her diffusion was completely normal. Lately, she has been acting like she is becoming more and more steroid dependent. In spite of higher dose inhaled steroids, she keeps having flares. She has had several very frightening flares of which the last one, occurred [facility]. She weaned herself off steroids accidentally. I am noticing that she is having more trouble remembering even if I write down what I wanted to do with her prednisone. This admission is associated with severe shortness of breath. Her daughter drove her to the [facility]. They worked on her for a while and then transferred her here. She says she feels much better. PAST MEDICAL HISTORY: Remarkable for an appendectomy, two C-sections, a hysterectomy, whooping cough as a child, prolonged QT with a combination of doxycycline and escitalopram reportedly. ALLERGIES: Reported to DOXYCYCLINE and PENICILLIN. I did not have PENICILLIN in my chart but it is in her hospital chart. The active allergy to DOXYCYCLINE was prolonged QT that was attributed to that by Dr. Tolentino. FAMILY HISTORY: Positive for heart disease, COPD, cancer, heart failure, stroke , and arthritis. SOCIAL HISTORY: She has been a pack a day smoker in the past. She is not a daily drinker. She is supposed to be on 5 mg prednisone a day. I believe she has nebulizer at the house. She is on nebulized budesonide and also Symbicort twice a day, giving her higher dose of inhaled steroids. She has a history of a CT from the [facility] earlier this year that showed a 7 mm nodule. We have been planning on repeating a CAT scan next Spring. REVIEW OF SYSTEMS: Ten points otherwise negative. PHYSICAL EXAMINATION: GENERAL: She is very pleasant and cooperative. She is in no distress. VITALS: She is afebrile, respiratory rate 16, oximetry is 91 on room air, blood pressure 108/53. HEAD AND NECK: Unremarkable. LUNGS: Clear now. HEART: Regular rhythm. ABDOMEN: Soft and nontender. EXTREMITIES: No clubbing, cyanosis, or edema. LABORATORY DATA: White count 9.3, hemoglobin 12.9, platelets 284. Sodium 135, potassium 4.1, chloride 101, bicarb 25, BUN 12, creatinine 0.85. IMPRESSION: 1. Status asthmaticus, clinically improved. 2. Probable steroid dependence. 3. Prolonged QT with doxycycline and escitalopram. 4. History of 7 mm pulmonary nodule that will be reevaluated on CT in the Spring time. 5. History of tobacco use with as mentioned, normal PFTs and normal diffusion. 6. History of whooping cough as a child, but no bronchiectasis on CT. I will be happy to follow while she is in the hospital. Hopefully, she will be discharged in 24-48 hours. 50 minute consul 50 % of time coordinating care MTDAnnamarie
[2017-12-07] MEDS ORDERED: Senokot 8.6 MG TAB PO SCH (21:00)
[2017-12-07] MEDS ORDERED: Rosuvastatin 10 MG TAB PO SCH (21:00)
[2017-12-08] MEDS ORDERED: Melatonin 3 MG TAB PO PRN (00:28)
[2017-12-08] MEDS: Mometasone/Formoterol 120 PUFF INHALER INH SCH (07:07)
[2017-12-08] MEDS: Aspirin 81 mg Enteric Coated Tablet PO SCH (08:27)
[2017-12-08] MEDS: predniSONE 20 MG TAB PO SCH (08:27)
[2017-12-08] MEDS: Hydrochlorothiazide 25 MG TAB PO SCH (08:28)
[2017-12-08] MEDS: Escitalopram Oxalate 20 mg Tablet PO SCH (08:28)
[2017-12-08] MEDS: Multivitamin W/ Minerals 1 TAB PO SCH (08:29)
[2017-12-08] MEDS: Saccharomyces boulardii 250 MG CAP PO SCH (08:29)
[2017-12-08] MEDS: Ubidecarenone 50 MG CAP PO SCH (08:29)
[2017-12-08] MEDS: Losartan 25 MG TAB PO SCH (08:29)
[2017-12-08] MEDS: Enoxaparin Sodium 40 MG/0.4 ML SYRINGE SC SCH (08:30)
[2017-12-08 12:02] VITALS: BP 128/64; TEMP 98.1
--- NOTE | 2017-12-08 13:18 | PDOC.PN ---
- Subjective Encounter Start Date: 12/08/17 Encounter Start Time: 13:16 Subjective: still feels some SOB w exertion -: no CP.no wheezing/cough/fever - Objective Resuscitation Status: Resuscitation Status DNR:Do Not Resuscitate MAR Reviewed: Yes Vital Signs & Weight: Vital Signs (12 hours) Temp Pulse Resp BP BP Pulse Ox 12/08/17 11:48 98.1 F 86 20 128/64 94 L 12/08/17 10:32 76 16 99 12/08/17 08:28 79 12/08/17 07:28 97.9 F 79 18 126/61 93 L 12/08/17 07:10 96 12/08/17 07:09 82 16 96 12/08/17 07:07 82 16 96 12/08/17 03:30 98.3 F 84 16 101/52 L 91 L Weight Weight 190 lb I&O: 12/07/17 12/08/17 12/09/17 06:59 06:59 06:59 Intake Total 520 360 Output Total 1000 Balance 520 -640 Result Diagrams: 12/07/17 03:46 12/07/17 03:46 Additional Labs: Microbiology 09/18/17 23:05 Urine clean catch Urine Culture - Final NO GROWTH AT 36 HOURS 09/18/17 20:02 Venous blood - Left Hand Blood Culture - Preliminary NO GROWTH AT 48 HOURS 09/18/17 19:32 Venous blood - Left Hand Blood Culture - Preliminary NO GROWTH AT 48 HOURS Laboratory Tests 09/18/17 09/18/17 19:32 19:32 Troponin I 0.013 B-Natriuretic Peptide 30.0 Phys Exam - Physical Examination Constitutional: NAD HEENT: PERRLA, moist MMs, sclera anicteric, oral pharynx no lesions Neck: no nodes, no JVD, supple, full ROM Respiratory: no wheezing, no rales, no rhonchi, clear to auscultation bilateral Cardiovascular: RRR, no significant murmur, no rub Gastrointestinal: soft, non-tender, no distention, positive bowel sounds Musculoskeletal: no edema, pulses present Neurological: non-focal, normal sensation, moves all 4 limbs Psychiatric: normal affect, A&O x 3 Skin: no rash Dx/Plan (1) COPD exacerbation Code(s): J44.1 - CHRONIC OBSTRUCTIVE PULMONARY DISEASE W (ACUTE) EXACERBATION Status: Acute (2) Chronic bronchitis Code(s): J42 - UNSPECIFIED CHRONIC BRONCHITIS Status: Chronic (3) Dyslipidemia Code(s): E78.5 - HYPERLIPIDEMIA, UNSPECIFIED Status: Chronic (4) HTN (hypertension) Code(s): I10 - ESSENTIAL (PRIMARY) HYPERTENSION Status: Chronic Qualifiers: (5) Osteoarthritis Code(s): M19.90 - UNSPECIFIED OSTEOARTHRITIS, UNSPECIFIED SITE Status: Chronic - Plan respiratory therapy, incentive spirometry, DVT proph w/SCDs clinically improved.99% on RA.no wheezing/rhonchi on exam -: stable for DC.will await clearance from [facility] -: cont meds as below. Empiric ABx,steroids,nebs -: hemodynamically stable * . Review of Systems - Review of Systems Constitutional: negative: fever, chills, sweats, weakness, malaise, other ENT: negative: Ear Pain, Ear Discharge, Nose Pain, Nose Discharge, Nose Congestion, Mouth Pain, Mouth Swelling, Throat Pain, Throat Swelling, Other Respiratory: SOB with Excertion. negative: Cough, Dry, Shortness of Breath, Hemoptysis, Pleuritic Pain, Sputum, Wheezing Cardiovascular: negative: chest pain, palpitations, orthopnea, paroxysmal nocturnal dyspnea, edema, light headedness, other Gastrointestinal: negative: Nausea, Vomiting, Abdominal Pain, Diarrhea, Constipation, Melena, Hematochezia, Other Genitourinary: negative: Dysuria, Frequency, Incontinence, Hematuria, Retention , Other Musculoskeletal: negative: Neck Pain, Shoulder Pain, Arm Pain, Back Pain, Hand Pain, Leg Pain, Foot Pain, Other Skin: negative: Rash, Lesions, Quinn, Bruising, Other Neurological: negative: Weakness, Numbness, Incoordination, Change in Speech, Confusion, Seizures, Other - Medications/Allergies Allergies/Adverse Reactions: Allergies Allergy/AdvReac Type Severity Reaction Status Date / Time Penicillins Allergy Rash Verified 09/19/17 01:40 Medications: Current Medications Acetaminophen (Tylenol) 650 mg PO Q4H PRN PRN Reason: Headache/Fever/Mild Pain (1-3) Last Admin: 12/08/17 03:45 Dose: 650 mg Albuterol/Ipratropium (Duoneb) 3 ml NEB Q2H PRN PRN Reason: SOB &/or Wheezing Stop: 12/11/17 12:35 Albuterol/Ipratropium (Duoneb) 3 ml NEB QID-RT [facility] Last Admin: 12/08/17 10:32 Dose: 3 ml Aspirin (Ecotrin) 162 mg PO DAILY [facility] Last Admin: 12/08/17 08:27 Dose: 162 mg Cholecalciferol (Vitamin D3) 5,000 units PO DAILY [facility] Last Admin: 12/08/17 08:27 Dose: 5,000 units Coenzyme Q10 (Coenzyme Q10) 100 mg PO BID [facility] Last Admin: 12/08/17 08:29 Dose: 100 mg Diltiazem HCl (Cardizem Cd) 120 mg PO DAILY [facility] Last Admin: 12/08/17 08:28 Dose: 120 mg Enoxaparin Sodium (Lovenox) 40 mg SC 0900 [facility] Last Admin: 12/08/17 08:30 Dose: 40 mg Escitalopram Oxalate (Lexapro) 20 mg PO DAILY [facility] Last Admin: 12/08/17 08:28 Dose: 20 mg Hydrochlorothiazide (Hydrochlorothiazide) 12.5 mg PO DAILY [facility] Last Admin: 12/08/17 08:28 Dose: 12.5 mg Levofloxacin 750 mg/ Device 150 mls @ 100 mls/hr IVPB Q24HR [facility] Last Admin: 12/07/17 20:56 Dose: 150 mls Iron/Minerals/Multivitamins (Theragran M) 1 tab PO DAILY [facility] Last Admin: 12/08/17 08:29 Dose: 1 tab Losartan Potassium (Cozaar) 100 mg PO DAILY [facility] Last Admin: 12/08/17 08:29 Dose: 100 mg Melatonin (Melatonin) 3 mg PO HS PRN PRN Reason: Insomnia Last Admin: 12/08/17 00:32 Dose: 3 mg Mometasone Furoate/Formoterol Fumar (Dulera 200 Mcg/5 Mcg Inhaler) 2 puff INH BID-RT [facility] Last Admin: 12/08/17 07:07 Dose: 2 puff Ondansetron HCl (Zofran) 4 mg IVP Q6H PRN PRN Reason: Nausea/Vomiting Prednisone (Prednisone) 40 mg PO QAM-WM [facility] Last Admin: 12/08/17 08:27 Dose: 40 mg Rosuvastatin Calcium (Crestor) 10 mg PO HS [facility] Last Admin: 12/07/17 20:38 Dose: 10 mg Saccharomyces Boulardii (Florastor) 250 mg PO DAILY [facility] Last Admin: 12/08/17 08:29 Dose: 250 mg Senna (Senokot) 3 tab PO HS [facility] Last Admin: 12/07/17 20:38 Dose: 3 tab Sodium Chloride (Flush - Normal Saline) 10 ml IVF PRN PRN PRN Reason: Saline Flush
--- NOTE | 2017-12-08 19:36 | PRG ---
DATE OF SERVICE: 12/08/2017 Claire Ojeda is back to her baseline. Her lungs are clear today. Vital signs are stable. She is w alking the yip without dyspnea. Sent her home with 40 of prednisone to take for 5 days and she will go to 20 mg a day until she sees the following week. She has a wedding in the next weekend. It is unlikely that we will taper her completely off prednisone. Again explained to her it is imperative t hat she call when she starts feeling short of breath. I doubt this is cardiac asthma.
--- NOTE | 2017-12-08 23:19 | DIS ---
DATE OF ADMISSION: 12/07/2017 DATE OF DISCHARGE: 12/08/2017 CONDITION AT THE TIME OF DISCHARGE: Stable and improved. DISCHARGE DISPOSITION: Home. DISCHARGE DIAGNOSES: 1. Acute chronic obstructive pulmonary disease exacerbation. 2. Chronic bronchitis. 3. Dyslipidemia. 4. Hypertension. 5. Osteoarthritis. DISCHARGE MEDICATIONS: Prednisone tapering Dosepak and resume home medication. Please see H&P from yesterday dictated by Dr. Curran for full list of her home medications. No changes. She will cont inue Florastor 250 mg daily, rosuvastatin 10 mg daily, losartan/hydrochlorothiazide 100/12.5 mg daily , DuoNeb daily p.r.n., Lexapro 20 mg daily, diltiazem 1 capsule daily, aspirin daily 162 mg, and Symb icort. INHOUSE CONSULTATION: Pulmonary Medicine, Dr. Casiano. HISTORY OF PRESENTING ILLNESS: Ms. Ojeda is a 76-year-old female with known history of COPD who pres ented to the emergency room with complaints of worsening shortness of breath. She was otherwise hemo dynamically stable and was admitted with a presumptive diagnosis of COPD exacerbation. She was start ed on IV steroids as well as nebulizers and her saturation equipment operator, Dr. Casiano was consulted. The patient had slow improvement in her symptoms, but of this morning, she is back to her baseline. She is saturating 99% on room air and has no wheezing on examination. She has been cleared for disch arge by Dr. Casiano this morning as well. She was seen and examined prior to discharge. Please see hospitalist progress note from today's date for further detail including [id number] interaction and complete list of home medications.
== END 2017-12-08 15:15 | disposition home or self-care (01) ==
LOC: ERS 23:56 → 2SW 12-07 00:35
PROVIDERS: ADMIT Hospitalist; ATTEND Hospitalist
DX: J44.1 Chronic obstructive pulmonary disease with (acute) exacerbation (principal); J45.902 Unspecified asthma with status asthmaticus; J96.01 Acute respiratory failure with hypoxia; I25.10 Atherosclerotic heart disease of native coronary artery without angina pectoris; I10 Essential (primary) hypertension; F32.9 Major depressive disorder, single episode, unspecified; E78.5 Hyperlipidemia, unspecified; M19.90 Unspecified osteoarthritis, unspecified site; Z87.891 Personal history of nicotine dependence; Z66 Do not resuscitate; Z79.82 Long term (current) use of aspirin; Z79.52 Long term (current) use of systemic steroids; Z79.899 Other long term (current) drug therapy; Z88.1 Allergy status to other antibiotic agents; Z88.0 Allergy status to penicillin
CPT/HCPCS: 80048; 85025; 87633; 93005; 94640 ×5; 94664; 96365; 96372 ×2; 99285; G0378; 36415; 93010; J1650; J1956; J7506; J7620

== ENCOUNTER 2017-12-22 10:00 | Outpatient (CLI) | payer MEDICARE, OTHER ==
--- NOTE | 2017-12-22 12:03 | RAD ---
TWO VIEW CHEST: History: Dyspnea. Comparison: 12-06-17 FINDINGS: Lungs remain clear. No infiltrate or vascular congestion. Heart size upper normal and stable. IMPRESSION: No acute finding or significant interval change. POS: [facility]
== END 2017-12-22 10:01 | disposition home or self-care (01) ==
LOC: RAD 10:00
PROVIDERS: ATTEND Internal Medicine Critical Care Medicine
DX: R06.00 Dyspnea, unspecified (principal)
CPT/HCPCS: 71046

== ENCOUNTER 2018-06-29 23:48 | Inpatient (IN) | payer MEDICARE, OTHER ==
[2018-06-30 00:26] LABS: #Basophils 0.1 thou/uL (0.0-0.2); #Eosinphils 0.2 thou/uL (0.0-0.7); #Lymphocytes 2.4 thou/uL (1.20-3.40); #Monocytes 0.9 thou/uL (0.11-0.59); #Neutrophils 16.2 thou/uL (1.40-6.50); %Basophils 0.5 % (0.0-1.0); %Eosinophils 0.8 % (0.0-10.0); %Lymphocytes 12.3 % (21.0-51.0); %Monocytes 4.6 % (0.0-10.0); %Neutrophils 81.8 % (42.0-75.0); Hemoglobin 13.7 g/dL (12.0-16.0); Mean Corpuscular HGB CONC 31.5 g/dL (32.0-36.0); Mean Corpuscular Hemoglobin 29.1 pg (27.0-31.0); Mean Corpuscular Volume 92.6 fL (78.0-98.0); Platelet Count 330 thou/uL (130-400); RBC Distribution Width 12.5 % (11.5-14.5); Red Blood Cell (RBC) Count 4.71 mill/uL (4.20-5.40); White Blood Cell (WBC) Count 19.8 thou/uL (4.8-10.8)
[2018-06-30] MEDS ORDERED: Albuterol Sulfate 2.5 mg/3 ml Neb ONE (00:26)
[2018-06-30 00:39] LABS: ALT (SGPT) 21 U/L (8-55); AST (SGOT) 24 U/L (5-34); Alkaline Phosphatase 101 U/L (40-150); Anion Gap 15 mmol/L (10-20); BUN (Urea Nitrogen) 13 mg/dL (9.8-20.1); Bilirubin, Total 0.4 mg/dL (0.2-1.2); Calc. Creatinine Clearance 0 mL/min (70-130); Calcium 9.6 mg/dL (7.8-10.44); Carbon Dioxide 27 mmol/L (23-31); Chloride 100 mmol/L (98-107); Estimated GFR-MDRD 68; Globulin 3.3 g/dL (2.4-3.5); Glucose 79 mg/dL (83-110); Potassium 3.7 mmol/L (3.5-5.1); Protein, Total 7.3 g/dL (6.0-8.3); Sodium 138 mmol/L (136-145)
[2018-06-30] MEDS ORDERED: predniSONE 20 MG TAB ONE (00:45)
[2018-06-30] MEDS ORDERED: cefTRIAXone\\ROCEPHIN 2 GM VIAL ONE (01:38)
[2018-06-30] MEDS ORDERED: HYDROcodone/Acetaminophen 5/325 mg Tablet PO PRN (02:39)
[2018-06-30] MEDS ORDERED: Acetaminophen 325 MG TAB PO PRN (02:39)
[2018-06-30] MEDS ORDERED: Calcium Carbonate 500 MG ChewTAB PO PRN (02:39)
[2018-06-30] MEDS ORDERED: Guaifenesin DM 100-10/5 ML UDCUP PO PRN (02:39)
[2018-06-30] MEDS ORDERED: Bisacodyl 10 MG SUPP PR PRN (02:39)
[2018-06-30] MEDS ORDERED: Loperamide HCl 2 MG CAP PO PRN (02:39)
[2018-06-30 04:19] LABS: Band 9 % (5-11); Eosinophils 1 % (0-10); Hemoglobin 12.5 g/dL (12.0-16.0); Lymphocytes 5 % (21-51); MDiff Complete? YES; Mean Corpuscular HGB CONC 33.7 g/dL (32.0-36.0); Mean Corpuscular Hemoglobin 30.8 pg (27.0-31.0); Mean Corpuscular Volume 91.4 fL (78.0-98.0); Mean Platelet Volume 7.8 fL (7.4-10.4); Monocytes 5 % (0-10); Neutrophil 80 % (42-75); Platelet Count 302 thou/uL (130-400); Platelet Morphology Comment Appears Adequate; RBC Distribution Width 12.3 % (11.5-14.5); Red Blood Cell (RBC) Count 4.05 mill/uL (4.20-5.40)
[2018-06-30 04:20] LABS: ALT (SGPT) 19 U/L (8-55); AST (SGOT) 19 U/L (5-34); Albumin 3.6 g/dL (3.4-4.8); Alkaline Phosphatase 91 U/L (40-150); Anion Gap 12 mmol/L (10-20); BUN (Urea Nitrogen) 12 mg/dL (9.8-20.1); Bilirubin, Total 0.3 mg/dL (0.2-1.2); Calc. Creatinine Clearance 0 mL/min (70-130); Calcium 8.7 mg/dL (7.8-10.44); Carbon Dioxide 25 mmol/L (23-31); Chloride 102 mmol/L (98-107); Estimated GFR-MDRD 69; Glucose 131 mg/dL (83-110); Potassium 3.6 mmol/L (3.5-5.1); Protein, Total 6.6 g/dL (6.0-8.3); Sodium 135 mmol/L (136-145)
[2018-06-30] MEDS ORDERED: Acetaminophen 325 MG TAB ONE ×2 (04:21)
--- NOTE | 2018-06-30 04:32 | HP ---
PRIMARY CARE PHYSICIAN: Michael Allen MD REASON FOR ADMISSION: COPD exacerbation. HISTORY OF PRESENT ILLNESS: A 77-year-old female, who has underlying history of COPD as well as ongoing tobacco abuse disorder, who presented to the emergency room with increasing shortness of breath as well as increasing cough productive of scant amount of sputum. She was also having low-grade subjective fever at home. She denies any pleurisy. She denies any chest pain, but she was having difficulty breathing, which was gradually getting worse for last couple of days. The patient continued to smoke even during these periods. She was trying her home nebulizer machine and the respiratory therapy without any significant improvement. The patient's level of functioning was also reduced because of shortness of breath and that is why the patient decided to come to the emergency room for evaluation. She denies any sore throat. She denies any upper respiratory infection. She denies any recent travel or sick exposure. She denies any UTI symptoms. She denies any constipation, diarrhea, melena, or hematochezia. The patient reports that for last couple of days her sputum was color changed from white to yellow and then green. When she arrived to the emergency room, she was in respiratory distress. She was febrile. She was tachycardic and tachypneic. She was given several rounds of DuoNeb therapy in the emergency room as well as antibiotic therapy with Rocephin and prednisone 60 mg given. The patient was still wheezing and that is why we decided to keep this patient in the hospital. REVIEW OF SYSTEMS: CONSTITUTIONAL: Negative for weight loss or gain, ability to conduct usual activities. SKIN: Negative for rash, itching. EYES: Negative for double vision, pain. ENT/MOUTH: Negative for nose bleeding, neck stiffness, pain, tenderness. CARDIOVASCULAR: Negative for palpitations, dyspnea on exertion, orthopnea. RESPIRATORY: Negative for shortness of breath, wheezing, cough, hemoptysis, fever or night sweats. GASTROINTESTINAL: Negative for poor appetite, abdominal pain, heartburn, nausea, vomiting, constipation, or diarrhea. GENITOURINARY: Negative for urgency, frequency, dysuria, nocturia. MUSCULOSKELETAL: Negative for pain, swelling. NEUROLOGIC/PSYCHIATRIC: Negative for anxiety, depression. ALLERGY/IMMUNOLOGIC: Negative for skin rash, bleeding tendency. Please see my HPI for pertinent positives and negatives. All other review of systems reviewed and negative, except as mentioned in the HPI. PAST MEDICAL HISTORY: COPD, hypertension, dyslipidemia, gastroesophageal reflux disease, and tobacco abuse disorder. PAST PSYCHIATRIC HISTORY: Anxiety and depression. PAST SURGICAL HISTORY: Gastric bypass surgery, left knee replacement, breast lumpectomy, appendicectomy, hysterectomy, and x2. ALLERGIES: PENICILLIN. SOCIAL HISTORY: The patient lives at home. She continues to smoke about 10 cigarettes everyday basis. She drinks alcohol socially. She denies any other illicit drug abuse. FAMILY HISTORY: No strong family history of premature coronary artery disease, stroke, or cancer. CURRENT HOME MEDICATIONS: The patient is on following medications: 1. Aspirin 81 mg 2 tablets daily. 2. Symbicort 2 puffs inhalation b.i.d. 3. Vitamin D3 at 5000 units p.o. daily. 4. Cartia XT 120 mg daily. 5. Lexapro 20 mg daily. 6. Glucosamine and chondroitin sulfate one capsule p.o. daily. 7. DuoNeb q.4 hourly. 8. Losartan with hydrochlorothiazide 1 tablet daily. 9. Multivitamin 1 tablet daily. 10. Crestor 10 mg p.o. at bedtime. 11. Coenzyme Q10 at 100 mg b.i.d. 12. Senna tablet at bedtime. 13. Lasix as needed basis. 14. Singulair 10 mg daily. EMERGENCY ROOM COURSE: The patient has received Rocephin 2 g, prednisone 60 mg, IV fluid, DuoNeb therapy, and albuterol nebulization therapy. PHYSICAL EXAMINATION: VITAL SIGNS: Currently; blood pressure 155/77, pulse 105, respiratory rate 18, temperature 100.1, saturation 92% on 2 L oxygen. Weight 88 kg. GENERAL: The patient is currently alert and awake. No obvious acute distress. HEENT: Head; normocephalic and atraumatic. Eyes; pupils are round and reactive to light. Extraocular muscles are intact. ENT, oropharynx within normal limits. Moist mucous membranes. No oral lesion. No pharyngeal erythema. No exudate. NECK: Supple. No JVD. No thyromegaly. No carotid bruit. No jugular venous distention. LUNGS: Bilateral wheezing heard. No rales noted. No accessory muscles of respiration in use. Air entry reduced on both sides. CARDIAC: S1 and S2, regular. Tachycardia. No murmur. No gallop. No rub. ABDOMEN: Soft. Bowel sounds are present. Nontender. Nondistended. No organomegaly. No mass. No suprapubic tenderness. BACK: Unremarkable. No CVA tenderness. EXTREMITIES: Upper extremities, passive movement of all joints are normal. Lower extremity, no edema. Good distal pulsation. No calf tenderness. SKIN: No skin rash. HEMATOLOGIC: No lymphadenopathy. PSYCHIATRIC: Normal affect. NEUROLOGIC: Nonfocal examination. SIGNIFICANT LABORATORY DATA: EKG showing normal sinus rhythm, nonspecific ST-T changes. Chest x-ray based on my review, no acute cardiopulmonary process, COPD type of changes. CBC; WBC 19.8, hemoglobin 13.7, and platelet 330. BMP; sodium 138, potassium 3.7, chloride 100, carbon dioxide 27, BUN 13, creatinine 0.82, glucose 79, and calcium 9.6. LFT; AST 24, ALT 21, alkaline phosphatase 101, and albumin 4.0. ASSESSMENT AND PLAN: Impression: 1. Acute chronic obstructive pulmonary disease exacerbation with bronchitis. The patient will be treated with DuoNeb therapy every 4 hourly, Dulera 2 puffs inhalation b.i.d., Solu-Medrol 40 mg IV q.6 hourly, Mucinex 600 mg twice daily, empiric antibiotic therapy with levofloxacin 750 mg IV daily. The patient is requesting Pulmonary consultation and that will be placed. We will monitor clinical response. 2. Coronary artery disease, stable without any angina. Continue aspirin 162 mg daily, Cartia XT 120 mg daily, losartan with hydrochlorothiazide 1 tablet daily and Crestor 10 mg p.o. q.h.s. 3. Hypertension. Continue losartan with hydrochlorothiazide 1 tablet daily, Cartia XT one tablet daily. 4. Dyslipidemia. Continue Crestor 10 mg p.o. q.h.s. 5. Anxiety and depression. Continue Lexapro 20 mg daily. 6. Deep venous thrombosis prophylaxis, Lovenox 40 mg subcu daily. Gastrointestinal prophylaxis, Pepcid 20 mg p.o. b.i.d. CODE STATUS: The patient is a full code. The patient's son is surrogate decision maker. DISPOSITION PLAN: Based on clinical course, we are expecting the patient's stay in hospital more than 2 midnights. Plan of care discussed with the patient and the patient's son in the emergency room. Job ID: [id number]
[2018-06-30] MEDS: methylPREDNISolone Sod Succ 40 MG VIAL IVP SCH ×4 (06:23→23:15)
[2018-06-30] MEDS ORDERED: methylPREDNISolone Sod Succ 40 MG VIAL ONE ×2 (06:27→13:19)
[2018-06-30 06:53] VITALS: BMI 35.4
--- NOTE | 2018-06-30 07:12 | RAD ---
CHEST ONE VIEW: INDICATIONS: Shortness of breath. COMPARISON: Prior exam dated 12/22/2017. FINDINGS: Cardiomegaly is stable. No pleural effusion or pneumothorax is evident. The pulmonary vasculature i s within normal limits. Chronic lung changes are stable. IMPRESSION: No acute cardiopulmonary abnormality. POS: BH
[2018-06-30] MEDS ORDERED: Enoxaparin Sodium 40 MG/0.4 ML SYRINGE ONE (09:57)
[2018-06-30] MEDS ORDERED: Aspirin Chewable 81 MG TAB ONE (09:57)
[2018-06-30] MEDS ORDERED: Famotidine 20 MG TAB ONE (09:57)
[2018-06-30] MEDS: Famotidine 20 MG TAB PO SCH ×2 (10:05→20:28)
[2018-06-30] MEDS: Aspirin 81 mg Enteric Coated Tablet PO SCH (10:06)
[2018-06-30] MEDS: Enoxaparin Sodium 40 MG/0.4 ML SYRINGE SC SCH (10:08)
[2018-06-30] MEDS ORDERED: Dextrose 5% in Water 1,000 ML IV PRN (10:44)
[2018-06-30] MEDS ORDERED: HumaLOG 300 UNITS/3 ML VIAL SC PRN ×2 (10:44)
[2018-06-30] MEDS ORDERED: Dextrose 50% Abboject 50 ML SYRINGE SLOW IVP PRN (10:44)
[2018-06-30] MEDS ORDERED: Furosemide 20 MG TAB PO PRN (10:48)
--- NOTE | 2018-06-30 10:52 | PDOC.PN ---
- Subjective Encounter Start Date: 06/30/18 Encounter Start Time: 10:49 Patient seen and examined, no new issues overnight, son at bedside, all questions answered. - Objective Resuscitation Status - Order Detail: 06/30/18 02:39 Resuscitation Status Routine Resuscitation Status: DNAR: NO Resuscitation Discussed with: Patient and youngest son Vital Signs & Weight: Vital Signs (12 hours) Pulse Resp Pulse Ox 06/30/18 09:31 100 06/30/18 08:00 108 H 18 Weight Weight 194 lb 0.108 oz Result Diagrams: 06/30/18 03:43 06/30/18 03:43 Phys Exam - Physical Examination Constitutional: NAD (obese) HEENT: PERRLA, moist MMs, sclera anicteric Neck: no nodes, no JVD, supple Respiratory: no rales, no rhonchi, wheezing present Cardiovascular: RRR, no significant murmur, no rub Gastrointestinal: soft, non-tender, no distention, positive bowel sounds Musculoskeletal: pulses present, edema present Dx/Plan (1) Chest pain Code(s): R07.9 - CHEST PAIN, UNSPECIFIED Status: Acute (2) Edema Code(s): R60.9 - EDEMA, UNSPECIFIED Status: Acute (3) COPD exacerbation Code(s): J44.1 - CHRONIC OBSTRUCTIVE PULMONARY DISEASE W (ACUTE) EXACERBATION Status: Acute (4) Dyslipidemia Code(s): E78.5 - HYPERLIPIDEMIA, UNSPECIFIED Status: Chronic (5) HTN (hypertension) Code(s): I10 - ESSENTIAL (PRIMARY) HYPERTENSION Status: Chronic Qualifiers: - Plan * Patient's son at bedside, states that his mother has been being brought to the hospital due to COPD every 2 months for the past 3,4 times, wants to make her a DNR, this was discussed with the patient and she agreed as well * will obtain echo for now to check for cardiac function * labs in AM * steroids + abx for now * pulmonary consulted * will monitor and see how patient does over the course of her stay and adjuste medical plan of care accordingly * case and plan d/w patient and son at length, they undrestood and agreed with this plan.
[2018-06-30] MEDS: Mometasone/Formoterol 120 PUFF INHALER INH SCH ×2 (11:16→19:13)
--- NOTE | 2018-06-30 11:52 | CON ---
DATE OF CONSULTATION: 06/30/2018 HISTORY OF PRESENT ILLNESS: A 77-year-old female. She is 194 pounds, 5 feet 2 inches, BMI 35, who comes into the hospital with shortness of breath, cough, wheezing, unresponsive to usual home medication. She sees Dr. Casiano on a regular basis. In fact, she is due to have some kind of procedure done Tuesday, probably a CT, I am thinking. She had a chest x-ray taken in the ER, which did not show any acute infiltrates. She says on a good day, she can walk all over [facility] without getting markedly short of breath. She has had coughing and wheezing now for several days, longstanding history of asthma, lost in history of tobacco abuse. She is smoking a half pack a day. No coughing. No chest pain. No chills. No sweats. PAST MEDICAL HISTORY: Chronic asthma, COPD, high cholesterol, hypertension, hyperlipidemia, coronary artery disease. PAST SURGICAL HISTORY: Lumpectomy, appendectomy, hysterectomy, left knee surgery, C-sections. HOME MEDICATIONS: Includes, 1. Singulair 10. 2. Losartan. 3. Lasix 20. 4. Lexapro 20. 5. Symbicort. ALLERGIES: PENICILLIN. SOCIAL AND FAMILY HISTORY: Unremarkable. REVIEW OF SYSTEMS: Ten-point negative. Pertinent for what sounds like sleep apnea, marked fatigue, marked snoring, PHYSICAL EXAMINATION: VITAL SIGNS: Saturations are 100% 2 L, respirations 16, pulse 82, blood pressure 130/80. CHEST: Diffuse wheezing. CARDIAC: Normal S1, S2. No gallops. ABDOMEN: No masses. LABORATORY DATA: White count 22,000, H and H 12 and 35, platelet count is normal. Lytes are normal. BNP is normal. IMPRESSION: 1. Chronic obstructive pulmonary disease, asthma exacerbation. 2. Ongoing tobacco abuse. 3. Sleep apnea. 4. Hypertension. PLAN: She needs an outpatient sleep study. I would continue antibiotics, steroids for the time being, and neb treatment. Switch over to oral medication If the chest x-ray is clear, I will notify Dr. Casiano. This is a 70-minute consultation note, 50% direct patient care. Job ID: [id number]
[2018-06-30] MEDS: Ubidecarenone 50 MG CAP PO SCH ×2 (12:03→20:27)
[2018-06-30] MEDS: Saccharomyces boulardii 250 MG CAP PO SCH (12:04)
[2018-06-30] MEDS: guaiFENesin ER 600 MG TAB PO SCH ×2 (12:11→20:29)
[2018-06-30] MEDS: Escitalopram Oxalate 20 mg Tablet PO SCH (12:11)
[2018-06-30] MEDS: Multivitamin W/ Minerals 1 TAB PO SCH (13:16)
[2018-06-30] MEDS: Losartan 25 MG TAB PO SCH (13:16)
[2018-06-30] MEDS: Hydrochlorothiazide 25 MG TAB PO SCH (13:17)
[2018-06-30] MEDS: Fleet Enema 133 ML BOT PR SCH ×2 (18:04→18:05)
[2018-06-30] MEDS: Rosuvastatin 10 MG TAB PO SCH (20:27)
[2018-06-30] MEDS: Senokot 8.6 MG TAB PO SCH (20:28)
[2018-06-30] MEDS: Temazepam 15 MG CAP PO PRN (22:19)
[2018-06-30 23:29] LABS: Troponin I Less than 0.010 ng/mL (< 0.028)
[2018-07-01] MEDS: Senokot S 8.6-50 MG TAB PO PRN (04:40)
[2018-07-01] MEDS: methylPREDNISolone Sod Succ 40 MG VIAL IVP SCH ×4 (05:32→23:34)
[2018-07-01] MEDS: Mometasone/Formoterol 120 PUFF INHALER INH SCH ×2 (06:48→18:13)
[2018-07-01 07:04] LABS: Anion Gap 18 mmol/L (10-20); BUN (Urea Nitrogen) 21 mg/dL (9.8-20.1); Calc. Creatinine Clearance 79 mL/min (70-130); Calcium 9.7 mg/dL (7.8-10.44); Carbon Dioxide 23 mmol/L (23-31); Chloride 100 mmol/L (98-107); Estimated GFR-MDRD 65; Glucose 119 mg/dL (83-110); Sodium 137 mmol/L (136-145)
[2018-07-01 07:36] LABS: Band 2 % (5-11); Eosinophils 1 % (0-10); Giant Platelets SLIGHT; Hemoglobin 12.2 g/dL (12.0-16.0); Lymphocytes 1 % (21-51); MDiff Complete? YES; Mean Corpuscular HGB CONC 32.8 g/dL (32.0-36.0); Mean Corpuscular Hemoglobin 30.3 pg (27.0-31.0); Mean Corpuscular Volume 92.3 fL (78.0-98.0); Mean Platelet Volume 8.3 fL (7.4-10.4); Monocytes 6 % (0-10); Neutrophil 87 % (42-75); Platelet Count 320 thou/uL (130-400); Platelet Morphology Comment Appears Adequate; RBC Distribution Width 12.2 % (11.5-14.5); RBC Morphology Normal; Reactive Lymphocytes 3 % (0-10); Red Blood Cell (RBC) Count 4.04 mill/uL (4.20-5.40); White Blood Cell (WBC) Count 28.8 thou/uL (4.8-10.8)
[2018-07-01] MEDS: Aspirin 81 mg Enteric Coated Tablet PO SCH (08:42)
[2018-07-01] MEDS: Losartan 25 MG TAB PO SCH (08:43)
[2018-07-01] MEDS: Hydrochlorothiazide 25 MG TAB PO SCH (08:43)
[2018-07-01] MEDS: Enoxaparin Sodium 40 MG/0.4 ML SYRINGE SC SCH (08:43)
[2018-07-01] MEDS: Multivitamin W/ Minerals 1 TAB PO SCH (08:43)
[2018-07-01] MEDS: Famotidine 20 MG TAB PO SCH ×2 (08:43→20:26)
[2018-07-01] MEDS: Saccharomyces boulardii 250 MG CAP PO SCH (08:43)
[2018-07-01] MEDS: Escitalopram Oxalate 20 mg Tablet PO SCH (08:43)
[2018-07-01] MEDS: Ubidecarenone 50 MG CAP PO SCH ×2 (08:44→20:27)
[2018-07-01] MEDS: guaiFENesin ER 600 MG TAB PO SCH ×2 (09:03→20:26)
--- NOTE | 2018-07-01 11:50 | PDOC.PN ---
- Subjective Encounter Start Date: 07/01/18 Encounter Start Time: 11:49 Patient seen and examined, no new issues or complaints. - Objective Resuscitation Status - Order Detail: 06/30/18 02:39 Resuscitation Status Routine Resuscitation Status: DNAR: NO Resuscitation Discussed with: Patient and youngest son Vital Signs & Weight: Vital Signs (12 hours) Temp Pulse Resp BP Pulse Ox 07/01/18 10:41 80 16 07/01/18 08:43 88 07/01/18 07:37 98.5 F 88 16 117/81 95 07/01/18 06:51 80 14 07/01/18 03:18 97.5 F L 92 18 121/65 96 07/01/18 02:13 83 16 100 Weight Weight 194 lb 0.108 oz Result Diagrams: 07/01/18 05:46 07/01/18 05:46 Additional Labs: Accuchecks 07/01/18 07/01/18 06/30/18 10:46 05:39 20:32 POC Glucose 124 H 147 H 135 H Phys Exam - Physical Examination Constitutional: NAD HEENT: PERRLA, moist MMs, sclera anicteric Neck: no nodes, no JVD, supple, full ROM +wheezing, better than before no respiratory distress Cardiovascular: RRR, no significant murmur, no rub Gastrointestinal: soft, non-tender, no distention, positive bowel sounds Musculoskeletal: pulses present, edema present Dx/Plan (1) Chest pain Code(s): R07.9 - CHEST PAIN, UNSPECIFIED Status: Acute (2) Edema Code(s): R60.9 - EDEMA, UNSPECIFIED Status: Acute (3) COPD exacerbation Code(s): J44.1 - CHRONIC OBSTRUCTIVE PULMONARY DISEASE W (ACUTE) EXACERBATION Status: Acute (4) Dyslipidemia Code(s): E78.5 - HYPERLIPIDEMIA, UNSPECIFIED Status: Chronic (5) HTN (hypertension) Code(s): I10 - ESSENTIAL (PRIMARY) HYPERTENSION Status: Chronic Qualifiers: - Plan * cont abx + steroids * echo pending * labs in AM * will reduce steroids in AM * case and plan d/w patient at length, she understood and agreed with this plan.
--- NOTE | 2018-07-01 13:06 | PRG ---
DATE OF SERVICE: 07/01/2018 SUBJECTIVE: This morning, she is awake, alert, responsive, doing better, less anxious. OBJECTIVE: VITAL SIGNS: Sats are 95% on room air, respirations 16, temperature 98, blood pressure 120/63. CHEST: Decreased breath sounds without any wheezing. CARDIAC: Normal S1 and S2. No gallops. ABDOMEN: No masses. [place]: [place] [address], though she has gotten no sputum. X-ray was clear. Lytes are normal. IMPRESSION: Chronic obstructive pulmonary disease exacerbation, bronchitis, leukocytosis. PLAN: I would continue present neb treatments, steroids, empiric antibiotics. Job ID: [id number]
[2018-07-01] MEDS ORDERED: Lorazepam 0.5 MG TAB PO PRN (20:07)
[2018-07-01] MEDS ORDERED: Benzonatate 100 MG CAP PO PRN (20:07)
--- NOTE | 2018-07-01 20:09 | PDOC.EVN ---
Event Note - Event Note Event Note: Called by RN due to patient having frequent coughing fits, she suddenly stops breathing and seems to have anxiety associated with episodes. HR increases to 120s. HR normalizes. O2 sat normal. Ativan 0.5 mg Q6H prn for anxiety, and Tessalon perles prn for cough. Continue to monitor. Patient followed by Dr. Marrufo for COPD exacerbation. On abx. temp normal. BP normal.
[2018-07-01] MEDS: Rosuvastatin 10 MG TAB PO SCH (20:26)
[2018-07-01] MEDS: Temazepam 15 MG CAP PO PRN (20:26)
[2018-07-01] MEDS: Senokot 8.6 MG TAB PO SCH (20:26)
[2018-07-02] MEDS: methylPREDNISolone Sod Succ 40 MG VIAL IVP SCH ×3 (05:21→20:54)
[2018-07-02 06:35] LABS: Anion Gap 14 mmol/L (10-20); BUN (Urea Nitrogen) 22 mg/dL (9.8-20.1); Calc. Creatinine Clearance 78 mL/min (70-130); Calcium 9.2 mg/dL (7.8-10.44); Carbon Dioxide 26 mmol/L (23-31); Chloride 101 mmol/L (98-107); Estimated GFR-MDRD 63; Glucose 115 mg/dL (83-110); Potassium 3.7 mmol/L (3.5-5.1); Sodium 137 mmol/L (136-145)
[2018-07-02 06:42] LABS: Band 12 % (5-11); Hemoglobin 11.6 g/dL (12.0-16.0); Lymphocytes 7 % (21-51); MDiff Complete? YES; Mean Corpuscular HGB CONC 33.1 g/dL (32.0-36.0); Mean Corpuscular Hemoglobin 30.3 pg (27.0-31.0); Mean Corpuscular Volume 91.8 fL (78.0-98.0); Mean Platelet Volume 8.8 fL (7.4-10.4); Monocytes 5 % (0-10); Neutrophil 76 % (42-75); Platelet Count 293 thou/uL (130-400); Platelet Morphology Comment Appears Adequate; RBC Distribution Width 12.3 % (11.5-14.5); Red Blood Cell (RBC) Count 3.84 mill/uL (4.20-5.40)
[2018-07-02] MEDS: Mometasone/Formoterol 120 PUFF INHALER INH SCH ×2 (06:55→19:15)
[2018-07-02] MEDS: Ubidecarenone 50 MG CAP PO SCH ×2 (08:57→20:51)
[2018-07-02] MEDS: Losartan 25 MG TAB PO SCH (08:58)
[2018-07-02] MEDS: Multivitamin W/ Minerals 1 TAB PO SCH (08:58)
[2018-07-02] MEDS: Saccharomyces boulardii 250 MG CAP PO SCH (08:58)
[2018-07-02] MEDS: Escitalopram Oxalate 20 mg Tablet PO SCH (08:59)
[2018-07-02] MEDS: Aspirin 81 mg Enteric Coated Tablet PO SCH (08:59)
[2018-07-02] MEDS: Famotidine 20 MG TAB PO SCH ×2 (08:59→20:52)
[2018-07-02] MEDS: Enoxaparin Sodium 40 MG/0.4 ML SYRINGE SC SCH (08:59)
[2018-07-02] MEDS: guaiFENesin ER 600 MG TAB PO SCH ×2 (08:59→20:53)
[2018-07-02] MEDS: Hydrochlorothiazide 25 MG TAB PO SCH (09:03)
--- NOTE | 2018-07-02 11:20 | PDOC.PN ---
- Subjective Encounter Start Date: 07/02/18 Encounter Start Time: 11:19 Patient seen and examined, granddaughter at bedside, states she feels better but still feeling SOB with ambulation and significant coughing overnight. No other issues, all questions answered. - Objective Resuscitation Status - Order Detail: 06/30/18 02:39 Resuscitation Status Routine Resuscitation Status: DNAR: NO Resuscitation Discussed with: Patient and youngest son Vital Signs & Weight: Vital Signs (12 hours) Temp Pulse Resp BP Pulse Ox 07/02/18 10:39 80 16 07/02/18 09:00 95 07/02/18 08:59 90 07/02/18 07:15 97 07/02/18 07:13 77 20 119/65 98 07/02/18 06:55 90 14 07/02/18 03:02 97.4 F L 86 20 131/63 95 07/02/18 01:32 84 20 99 Weight Weight 194 lb 0.108 oz Result Diagrams: 07/02/18 05:09 07/02/18 05:09 Additional Labs: Accuchecks 07/02/18 07/01/18 07/01/18 05:17 20:30 16:44 POC Glucose 128 H 116 H 151 H Phys Exam - Physical Examination Constitutional: NAD obese HEENT: PERRLA, moist MMs, sclera anicteric Neck: no nodes, no JVD, supple Respiratory: no rales, no rhonchi, wheezing present Cardiovascular: RRR, no significant murmur, no rub Gastrointestinal: soft, non-tender, no distention, positive bowel sounds Musculoskeletal: pulses present, edema present (trace) Dx/Plan (1) Chest pain Code(s): R07.9 - CHEST PAIN, UNSPECIFIED Status: Acute (2) Edema Code(s): R60.9 - EDEMA, UNSPECIFIED Status: Acute (3) COPD exacerbation Code(s): J44.1 - CHRONIC OBSTRUCTIVE PULMONARY DISEASE W (ACUTE) EXACERBATION Status: Acute (4) Dyslipidemia Code(s): E78.5 - HYPERLIPIDEMIA, UNSPECIFIED Status: Chronic (5) HTN (hypertension) Code(s): I10 - ESSENTIAL (PRIMARY) HYPERTENSION Status: Chronic Qualifiers: - Plan * decrease steroids * PT evaluation * cont oxygen for now * possible DC in 24-48hrs if feeling better and if ok with pulmonary * case and plan d/w patient and granddaughter at length, they understand and agree with this plan.
--- NOTE | 2018-07-02 13:14 | PRG ---
DATE OF SERVICE: 07/02/2018 SUBJECTIVE: She says she is better this morning and less short of breath. OBJECTIVE: VITAL SIGNS: Saturations are 96% on room air, respirations 18, temperature 97, pulse 80, and blood pressure 120/62. CHEST: Decreased breath sounds. No wheezing. CARDIAC: Normal S1 and S2. No gallops. ABDOMEN: No masses. LABORATORY DATA: White count 24,000. Lytes are normal. IMPRESSION: 1. Chronic obstructive pulmonary disease exacerbation. 2. Bronchitis. PLAN: She is on neb treatments as scheduled. She is on steroids, antibiotics. Supportive care. I am going to add some Dulera to her present treatment. We will notify Dr. Casiano. Job ID: [id number]
[2018-07-02] MEDS: Rosuvastatin 10 MG TAB PO SCH (20:52)
[2018-07-02] MEDS: Senokot 8.6 MG TAB PO SCH (20:53)
[2018-07-02] MEDS: Senokot S 8.6-50 MG TAB PO PRN (20:53)
[2018-07-02] MEDS: Temazepam 15 MG CAP PO PRN (21:02)
[2018-07-03] MEDS: Mometasone/Formoterol 120 PUFF INHALER INH SCH ×2 (06:52→20:21)
[2018-07-03] MEDS: Losartan 25 MG TAB PO SCH (09:44)
[2018-07-03] MEDS: guaiFENesin ER 600 MG TAB PO SCH ×2 (09:45→21:35)
[2018-07-03] MEDS: Hydrochlorothiazide 25 MG TAB PO SCH (09:45)
[2018-07-03] MEDS: Escitalopram Oxalate 20 mg Tablet PO SCH (09:45)
[2018-07-03] MEDS: Famotidine 20 MG TAB PO SCH ×2 (09:46→21:34)
[2018-07-03] MEDS: Saccharomyces boulardii 250 MG CAP PO SCH (09:46)
[2018-07-03] MEDS: Ubidecarenone 50 MG CAP PO SCH ×2 (09:46→21:33)
[2018-07-03] MEDS: Aspirin 81 mg Enteric Coated Tablet PO SCH (09:47)
[2018-07-03] MEDS: methylPREDNISolone Sod Succ 40 MG VIAL IVP SCH ×2 (09:47→21:36)
[2018-07-03] MEDS: Multivitamin W/ Minerals 1 TAB PO SCH (09:47)
[2018-07-03] MEDS: Enoxaparin Sodium 40 MG/0.4 ML SYRINGE SC SCH (09:48)
--- NOTE | 2018-07-03 11:01 | PDOC.PN ---
- Subjective Encounter Start Date: 07/03/18 Encounter Start Time: 11:00 Patient seen and examined, states she's still coughing and wheezing a bit but feels much better, no other issues. - Objective Resuscitation Status - Order Detail: 06/30/18 02:39 Resuscitation Status Routine Resuscitation Status: DNAR: NO Resuscitation Discussed with: Patient and youngest son Vital Signs & Weight: Vital Signs (12 hours) Temp Pulse Resp BP Pulse Ox 07/03/18 10:44 70 14 07/03/18 09:47 70 07/03/18 07:45 97.8 F 95 18 161/93 H 95 07/03/18 06:53 70 14 07/03/18 03:53 94 L 07/03/18 03:48 97.6 F 74 18 134/67 96 07/03/18 00:00 97.3 F L 85 18 127/58 L 94 L 07/02/18 23:28 94 L Weight Weight 194 lb 0.108 oz I&O: 07/02/18 07/03/18 07/04/18 06:59 06:59 06:59 Intake Total 1410 Balance 1410 Result Diagrams: 07/02/18 05:09 07/02/18 05:09 Additional Labs: Accuchecks 07/03/18 07/03/18 07/02/18 10:47 05:49 20:58 POC Glucose 136 H 125 H 117 H 07/02/18 07/02/18 16:59 10:42 POC Glucose 129 H 156 H Phys Exam - Physical Examination Constitutional: NAD HEENT: PERRLA, moist MMs, sclera anicteric Neck: no nodes, no JVD, supple Respiratory: no rales, no rhonchi, wheezing present Cardiovascular: RRR, no significant murmur, no rub Gastrointestinal: soft, non-tender, no distention, positive bowel sounds Musculoskeletal: pulses present, edema present Dx/Plan (1) Chest pain Code(s): R07.9 - CHEST PAIN, UNSPECIFIED Status: Acute (2) Edema Code(s): R60.9 - EDEMA, UNSPECIFIED Status: Acute (3) COPD exacerbation Code(s): J44.1 - CHRONIC OBSTRUCTIVE PULMONARY DISEASE W (ACUTE) EXACERBATION Status: Acute (4) Dyslipidemia Code(s): E78.5 - HYPERLIPIDEMIA, UNSPECIFIED Status: Chronic (5) HTN (hypertension) Code(s): I10 - ESSENTIAL (PRIMARY) HYPERTENSION Status: Chronic Qualifiers: - Plan * continues to wheeze but much better than before * cont steroids for now * cont abx * pulmonary also following * PT * case and plan d/w patient at length, she understood and agreed with this plan.
--- NOTE | 2018-07-03 13:59 | PRG ---
DATE OF SERVICE: 07/03/2018 SUBJECTIVE: Ms. Ojeda's events been reviewed. She says she is feeling better than when she came in. OBJECTIVE: VITAL SIGNS: Vital signs have been stable. She is afebrile. Heart rate is 66, respiratory rate is 18, oximetry is 96% on room air, blood pressure 146/71. LUNGS: Remarkable for end-expiratory wheezes. HEART: Regular rhythm. ABDOMEN: Soft. IMPRESSION: Asthmatic bronchitis, clinically improving. Continue steroids and nebulized treatments. Encourage her to spend more time out of bed. Reviewed echocardiogram report, which shows a normal ejection fraction. Job ID: [id number]
[2018-07-03] MEDS: Rosuvastatin 10 MG TAB PO SCH (21:31)
[2018-07-03] MEDS: Senokot 8.6 MG TAB PO SCH (21:32)
[2018-07-03] MEDS: Senokot S 8.6-50 MG TAB PO PRN (21:34)
[2018-07-03] MEDS: Temazepam 15 MG CAP PO PRN (21:35)
[2018-07-04] MEDS: Mometasone/Formoterol 120 PUFF INHALER INH SCH ×2 (06:58→19:14)
[2018-07-04] MEDS: Ubidecarenone 50 MG CAP PO SCH ×2 (10:15→20:34)
[2018-07-04] MEDS: Losartan 25 MG TAB PO SCH (10:15)
[2018-07-04] MEDS: Aspirin 81 mg Enteric Coated Tablet PO SCH (10:16)
[2018-07-04] MEDS: guaiFENesin ER 600 MG TAB PO SCH ×2 (10:16→20:37)
[2018-07-04] MEDS: Famotidine 20 MG TAB PO SCH ×2 (10:16→20:37)
[2018-07-04] MEDS: Escitalopram Oxalate 20 mg Tablet PO SCH (10:16)
[2018-07-04] MEDS: Multivitamin W/ Minerals 1 TAB PO SCH (10:17)
[2018-07-04] MEDS: Hydrochlorothiazide 25 MG TAB PO SCH (10:17)
[2018-07-04] MEDS: Saccharomyces boulardii 250 MG CAP PO SCH (10:18)
[2018-07-04] MEDS: methylPREDNISolone Sod Succ 40 MG VIAL IVP SCH (10:18)
[2018-07-04] MEDS: Enoxaparin Sodium 40 MG/0.4 ML SYRINGE SC SCH (10:32)
[2018-07-04 14:08] LABS: #Monocytes 0.9 thou/uL (0.11-0.59); #Neutrophils 12.1 thou/uL (1.40-6.50); %Basophils 0.1 % (0.0-1.0); %Eosinophils 0.1 % (0.0-10.0); %Monocytes 6.7 % (0.0-10.0); Hemoglobin 11.5 g/dL (12.0-16.0); Mean Corpuscular HGB CONC 32.5 g/dL (32.0-36.0); Mean Corpuscular Hemoglobin 29.9 pg (27.0-31.0); Mean Corpuscular Volume 92.1 fL (78.0-98.0); Mean Platelet Volume 8.5 fL (7.4-10.4); Platelet Count 266 thou/uL (130-400); RBC Distribution Width 12.1 % (11.5-14.5); Red Blood Cell (RBC) Count 3.83 mill/uL (4.20-5.40)
[2018-07-04] MEDS: Rosuvastatin 10 MG TAB PO SCH (20:35)
[2018-07-04] MEDS: Senokot 8.6 MG TAB PO SCH (20:35)
[2018-07-04] MEDS: Senokot S 8.6-50 MG TAB PO PRN (20:37)
[2018-07-04] MEDS: Temazepam 15 MG CAP PO PRN (20:38)
[2018-07-05] MEDS: Mometasone/Formoterol 120 PUFF INHALER INH SCH (07:06)
[2018-07-05] MEDS ORDERED: predniSONE 20 MG TAB PO SCH (08:00)
[2018-07-05 08:19] VITALS: BP 140/65; TEMP 98.1
[2018-07-05] MEDS: Enoxaparin Sodium 40 MG/0.4 ML SYRINGE SC SCH (08:20)
[2018-07-05] MEDS: Losartan 25 MG TAB PO SCH (08:22)
[2018-07-05] MEDS: Ubidecarenone 50 MG CAP PO SCH (08:22)
[2018-07-05] MEDS: Famotidine 20 MG TAB PO SCH (08:22)
[2018-07-05] MEDS: Aspirin 81 mg Enteric Coated Tablet PO SCH (08:22)
[2018-07-05] MEDS: Saccharomyces boulardii 250 MG CAP PO SCH (08:23)
[2018-07-05] MEDS: Hydrochlorothiazide 25 MG TAB PO SCH (08:23)
[2018-07-05] MEDS: guaiFENesin ER 600 MG TAB PO SCH (08:23)
[2018-07-05] MEDS: Escitalopram Oxalate 20 mg Tablet PO SCH (08:23)
[2018-07-05] MEDS: Multivitamin W/ Minerals 1 TAB PO SCH (08:23)
--- NOTE | 2018-07-05 16:14 | PRG ---
DATE OF SERVICE: 07/05/2018 SUBJECTIVE: Claire Ojeda states she wants to go home today. She is back to her baseline. OBJECTIVE: LUNGS: Completely clear. VITAL SIGNS: Stable. HEART: Regular rhythm. S1 and S2 are normal. ABDOMEN: Soft and nontender. PLAN: I will get her a peak flow meter when she comes back to the office. She needs something to help her monitor her pulmonary function when she is at home as she does not have any internal switch that tells her when she is getting bad enough to need hospitalization. I will see her back in followup next week. Job ID: [id number]
== END 2018-07-05 10:34 | disposition home or self-care (01) | DRG 202 ==
LOC: ERS 23:48 → 2NO 06-30 01:36 → ERHOLD 06-30 01:42 → 2NO 06-30 15:59
PROVIDERS: ADMIT Internal Medicine; ATTEND Internal Medicine
DX: J45.901 Unspecified asthma with (acute) exacerbation (principal); J44.1 Chronic obstructive pulmonary disease with (acute) exacerbation; I10 Essential (primary) hypertension; Z66 Do not resuscitate; K21.9 Gastro-esophageal reflux disease without esophagitis; F41.9 Anxiety disorder, unspecified; F32.9 Major depressive disorder, single episode, unspecified; E78.00 Pure hypercholesterolemia, unspecified; F17.210 Nicotine dependence, cigarettes, uncomplicated; I25.10 Atherosclerotic heart disease of native coronary artery without angina pectoris; Z96.652 Presence of left artificial knee joint; Z90.710 Acquired absence of both cervix and uterus; Z79.82 Long term (current) use of aspirin; Z90.49 Acquired absence of other specified parts of digestive tract; Z88.0 Allergy status to penicillin; Z79.51 Long term (current) use of inhaled steroids; Z79.52 Long term (current) use of systemic steroids; G47.30 Sleep apnea, unspecified
CPT/HCPCS: 36415; 36416; 71045; 80048; 80053; 83880; 84484; 85025; 93005; 93306; 94640; 94644; 94664; 96361; 96365; J0696; J1650; J1956; J2920; J7512; J7611; J7620

== ENCOUNTER 2018-08-17 10:08 | Outpatient (CLI) | payer MEDICARE, OTHER ==
[~2018-08-17 10:08] MED LIST: Mometasone/Formoterol 120 PUFF INHALER INH SCH
--- NOTE | 2018-08-17 13:16 | CT ---
CT CHEST WITHOUT CONTRAST: HISTORY: Left lower lobe pulmonary nodule on prior examination. COMPARISON: CT abdomen and pelvis from 02/13/2017. TECHNIQUE: Multiple contiguous axial images were obtained in a CT of the chest without contrast. Sagittal and c oronal reformats were performed. FINDINGS: There is a 7 to 8 mm pulmonary nodule that is well circumscribed in the left lower lobe. A 4 mm nodu lar opacity is seen on image 108 of 178 in the left lower lobe. No other significant pulmonary nodul es are identified. No pneumothorax or pleural effusion is seen. The heart is normal in size. Calcifications are seen in the coronary arteries and aorta. No hilar o r mediastinal lymphadenopathy is appreciated on this limited noncontrast examination. Degenerative changes are seen in the spine. The visualized subdiaphragmatic structures are unremarka ble. The chest wall soft tissues are unremarkable. IMPRESSION: Two small left lower lobe pulmonary nodules, as above. POS: [facility]
== END 2018-08-17 10:09 | disposition home or self-care (01) ==
LOC: BICCT 10:08
PROVIDERS: ATTEND Internal Medicine Critical Care Medicine
DX: R91.8 Other nonspecific abnormal finding of lung field (principal); I25.10 Atherosclerotic heart disease of native coronary artery without angina pectoris; I70.0 Atherosclerosis of aorta; M47.819 Spondylosis without myelopathy or radiculopathy, site unspecified
CPT/HCPCS: 71250

== ENCOUNTER 2018-09-20 14:35 | Outpatient (CLI) | payer MEDICARE, OTHER | END 2018-09-20 14:36 | disposition home or self-care (01) | LOC: CP 14:35 | PROVIDERS: ATTEND Internal Medicine Critical Care Medicine | DX: J44.9 Chronic obstructive pulmonary disease, unspecified (principal) | CPT/HCPCS: 94060; 94727; 94729 ==

== ENCOUNTER 2018-10-12 21:19 | Emergency (ER) | payer MEDICARE, OTHER ==
[~2018-10-12 21:19] MED LIST changes: +ISOVUE-370 76%-LOCM 1 ML ONE; -Mometasone/Formoterol 120 PUFF INHALER INH SCH
--- NOTE | 2018-10-12 21:59 | RAD ---
XR Chest 1 View Portable HISTORY: Shortness of breath COMPARISON: 06/30/2018 study FINDINGS: Heart size upper limits of normal. There are atherosclerotic changes of the aorta. Mild chr onic lung changes are seen. IMPRESSION: No active intrathoracic disease. Stable chest.
[2018-10-12 22:17] LABS: #Basophils 0.1 thou/uL (0.0-0.2); #Eosinphils 1.1 thou/uL (0.0-0.7); #Lymphocytes 2.3 thou/uL (1.20-3.40); #Monocytes 0.6 thou/uL (0.11-0.59); #Neutrophils 6.4 thou/uL (1.40-6.50); %Basophils 1.1 % (0.0-1.0); %Eosinophils 10.8 % (0.0-10.0); %Lymphocytes 21.9 % (21.0-51.0); %Monocytes 5.7 % (0.0-10.0); %Neutrophils 60.5 % (42.0-75.0); Hemoglobin 12.7 g/dL (12.0-16.0); Mean Corpuscular HGB CONC 33.3 g/dL (32.0-36.0); Mean Corpuscular Hemoglobin 30.3 pg (27.0-31.0); Mean Corpuscular Volume 91.1 fL (78.0-98.0); Mean Platelet Volume 7.7 fL (7.4-10.4); Platelet Count 321 thou/uL (130-400); RBC Distribution Width 12.5 % (11.5-14.5); Red Blood Cell (RBC) Count 4.17 mill/uL (4.20-5.40); White Blood Cell (WBC) Count 10.5 thou/uL (4.8-10.8)
[2018-10-12 22:33] LABS: ALT (SGPT) 9 U/L (8-55); AST (SGOT) 14 U/L (5-34); Albumin 3.7 g/dL (3.4-4.8); Alkaline Phosphatase 84 U/L (40-150); Anion Gap 13 mmol/L (10-20); BUN (Urea Nitrogen) 11 mg/dL (9.8-20.1); Bilirubin, Total 0.3 mg/dL (0.2-1.2); Calc. Creatinine Clearance 0 mL/min (70-130); Calcium 9.1 mg/dL (7.8-10.44); Carbon Dioxide 27 mmol/L (23-31); Chloride 101 mmol/L (98-107); Estimated GFR-MDRD 68; Globulin 2.5 g/dL (2.4-3.5); Glucose 86 mg/dL (83-110); Potassium 3.6 mmol/L (3.5-5.1); Protein, Total 6.2 g/dL (6.0-8.3); Sodium 137 mmol/L (136-145)
--- NOTE | 2018-10-13 00:01 | CT ---
CT angiogram of chest performed with intravenous contrast enhancement with 3-D reconstructions HISTORY: Shortness of breath. COMPARISON: None. FINDINGS: The lungs are clear of any infiltrative process. There are linear interstitial changes in t he lung bases which appear to represent scar. There is an 8 mm left lower lobe noncalcified pulmonary nodule present this would require follow-up. A smaller 5 mm nodule is seen in the right low er lobe. No significant mediastinal or hilar adenopathy. The thoracic aorta is normal in caliber. There is fairly good pulmonary artery opacification and no CT evidence for pulmonary embolus. Coronar y artery calcifications are noted. Small hiatal hernia is seen. Visualized liver parenchyma shows no focal findings. IMPRESSION: 1. No CT evidence for pulmonary embolus. 2. Small bilateral lower lobe pulmonary nodules follow-up is recommended.
== END 2018-10-13 00:41 | disposition home or self-care (01) ==
LOC: ERS 21:19
DX: R06.00 Dyspnea, unspecified (principal); I25.10 Atherosclerotic heart disease of native coronary artery without angina pectoris; I10 Essential (primary) hypertension; E78.5 Hyperlipidemia, unspecified; E78.00 Pure hypercholesterolemia, unspecified; J44.9 Chronic obstructive pulmonary disease, unspecified; F32.9 Major depressive disorder, single episode, unspecified; F41.9 Anxiety disorder, unspecified; F17.210 Nicotine dependence, cigarettes, uncomplicated; Z79.82 Long term (current) use of aspirin; Z79.52 Long term (current) use of systemic steroids; Z79.51 Long term (current) use of inhaled steroids; Z79.899 Other long term (current) drug therapy
CPT/HCPCS: 36415; 71045; 71275; 80053; 83880; 84484; 85025; 93005; Q9966

== ENCOUNTER 2020-07-16 16:47 | Inpatient (IN) | payer MEDICARE, OTHER ==
[~2020-07-16 16:47] MED LIST changes: -ISOVUE-370 76%-LOCM 1 ML ONE; +Iopamidol-370 76% 500 ML 1 ML ONE
[2020-07-16 17:29] LABS: #Basophils 0.1 thou/uL (0.0-0.2); #Eosinphils 0.2 thou/uL (0.0-0.7); #Lymphocytes 2.2 thou/uL (1.20-3.40); #Monocytes 0.8 thou/uL (0.11-0.59); #Neutrophils 13.6 thou/uL (1.40-6.50); %Basophils 0.6 % (0.0-1.0); %Eosinophils 1.4 % (0.0-10.0); %Monocytes 4.7 % (0.0-10.0); %Neutrophils 80.4 % (42.0-75.0); Hemoglobin 13.5 g/dL (12.0-16.0); Mean Corpuscular HGB CONC 32.4 g/dL (32.0-36.0); Mean Corpuscular Hemoglobin 28.8 pg (27.0-31.0); Mean Corpuscular Volume 88.9 fL (78.0-98.0); Mean Platelet Volume 7.5 fL (7.4-10.4); Platelet Count 294 thou/uL (130-400); RBC Distribution Width 13.6 % (11.5-14.5); Red Blood Cell (RBC) Count 4.69 mill/uL (4.20-5.40); White Blood Cell (WBC) Count 16.9 thou/uL (4.8-10.8)
[2020-07-16] MEDS ORDERED: Morphine 4 MG/ML VIAL ONE (17:30)
[2020-07-16] MEDS ORDERED: Ondansetron PF 4 MG/2 ML Vial ONE (17:30)
[2020-07-16 17:50] LABS: ALT (SGPT) 16 U/L (8-55); AST (SGOT) 19 U/L (5-34); Albumin 3.4 g/dL (3.4-4.8); Alkaline Phosphatase 94 U/L (40-110); Anion Gap 16 mmol/L (10-20); BUN (Urea Nitrogen) 13 mg/dL (9.8-20.1); Bilirubin, Total 0.4 mg/dL (0.2-1.2); Calc. Creatinine Clearance 0 mL/min (70-130); Calcium 8.9 mg/dL (7.8-10.44); Carbon Dioxide 22 mmol/L (23-31); Chloride 102 mmol/L (98-107); Globulin 2.9 g/dL (2.4-3.5); Glucose 91 mg/dL (83-110); Lipase 27 U/L (8-78); Potassium 3.5 mmol/L (3.5-5.1); Protein, Total 6.3 g/dL (5.8-8.1); Sodium 136 mmol/L (136-145)
[2020-07-16] MEDS ORDERED: Albuterol Sulfate 2.5 mg/3 ml Neb ONE (19:17)
[2020-07-16] MEDS ORDERED: Fentanyl 100 MCG/2 ML VIAL ONE (19:20)
[2020-07-16] MEDS ORDERED: Ondansetron PF 4 MG/2 ML Vial IVP PRN ×2 (21:10→23:51)
[2020-07-16 21:16] LABS: Bacteria/HPF None Seen HPF (None Seen); Bilirubin Negative (Negative); Blood, Urine 2+ (Negative); Clarity Clear (Clear); Glucose, Urine (Dipstick) Normal (Negative); Ketone, Urine Negative (Negative); Leukocyte Negative Leu/uL (Negative); Mucous/LPF Rare LPF (<2+); Nitrite Negative (Negative); Protein, Urine (Dipstick) Negative (Neg-Trace); Specific Gravity, Urine 1.055 (1.002-1.036); Squamous Epithelial 0-3 HPF (0-3); Urobilinogen Normal mg/dL (Less than 2); pH, Urine 5.5 (5.0-9.0)
[2020-07-16] MEDS ORDERED: Benzocaine 20% Spray 60 ML CAN ONE (21:33)
[2020-07-16 22:45] VITALS: BMI 36.9
[2020-07-16] MEDS: D5 1/2 NS w/20 mEq KCL 1,000 ML IV SCH (23:25)
[2020-07-16] MEDS ORDERED: hydrALAZINE 20 MG/ML VIAL SLOW IVP PRN (23:52)
[2020-07-17] MEDS: methylPREDNISolone Sod Succ 40 MG VIAL IVP SCH ×4 (00:33→17:05)
[2020-07-17 06:25] LABS: Hemoglobin 12.6 g/dL (12.0-16.0); Mean Corpuscular HGB CONC 32.2 g/dL (32.0-36.0); Mean Corpuscular Hemoglobin 28.7 pg (27.0-31.0); Mean Corpuscular Volume 89.1 fL (78.0-98.0); Mean Platelet Volume 7.6 fL (7.4-10.4); Platelet Count 297 thou/uL (130-400); RBC Distribution Width 13.6 % (11.5-14.5); Red Blood Cell (RBC) Count 4.39 mill/uL (4.20-5.40); White Blood Cell (WBC) Count 17.4 thou/uL (4.8-10.8)
[2020-07-17 06:43] LABS: Anion Gap 12 mmol/L (10-20); BUN (Urea Nitrogen) 13 mg/dL (9.8-20.1); Calc. Creatinine Clearance 78 mL/min (70-130); Calcium 8.4 mg/dL (7.8-10.44); Carbon Dioxide 25 mmol/L (23-31); Chloride 104 mmol/L (98-107); Glucose 172 mg/dL (83-110); Potassium 4.3 mmol/L (3.5-5.1); Sodium 137 mmol/L (136-145)
[2020-07-17 06:57] LABS: Band 6 % (5-11); Lymphocytes 4 % (21-51); MDiff Complete? YES; Monocytes 1 % (0-10); Neutrophil 89 % (42-75); Platelet Morphology Comment Appears Adequate; RBC Morphology Normal
[2020-07-17] MEDS: D5 1/2 NS w/20 mEq KCL 1,000 ML IV SCH (08:38)
[2020-07-17] MEDS ORDERED: Escitalopram Oxalate 20 mg Tablet PO SCH (10:00)
[2020-07-17] MEDS ORDERED: Acetaminophen 325 MG TAB PO PRN (17:30)
[2020-07-17] MEDS: Mometasone 200 MCG/Formoterol 5 MCG 120 PUFF INHALER INH SCH (18:41)
[2020-07-17] MEDS ORDERED: Rosuvastatin 20 MG TAB PO SCH (21:00)
[2020-07-18] MEDS: D5 1/2 NS w/20 mEq KCL 1,000 ML IV SCH ×2 (00:22→13:58)
[2020-07-18] MEDS: methylPREDNISolone Sod Succ 40 MG VIAL IVP SCH ×3 (00:22→13:53)
[2020-07-18] MEDS: Mometasone 200 MCG/Formoterol 5 MCG 120 PUFF INHALER INH SCH (07:02)
[2020-07-18] MEDS ORDERED: Escitalopram Oxalate 20 mg Tablet PO SCH (09:00)
[2020-07-18 11:31] VITALS: BP 126/77; TEMP 98.3
[2020-07-18 13:45] LABS: Hemoglobin 11.5 g/dL (12.0-16.0); Mean Corpuscular HGB CONC 33.5 g/dL (32.0-36.0); Mean Corpuscular Hemoglobin 29.8 pg (27.0-31.0); Mean Corpuscular Volume 89.1 fL (78.0-98.0); Platelet Count 279 thou/uL (130-400); RBC Distribution Width 13.6 % (11.5-14.5); Red Blood Cell (RBC) Count 3.85 mill/uL (4.20-5.40); White Blood Cell (WBC) Count 25.1 thou/uL (4.8-10.8)
[2020-07-18 14:45] LABS: Band 29 % (5-11); MDiff Complete? YES; Monocytes 2 % (0-10); Neutrophil 69 % (42-75)
== END 2020-07-18 15:30 | disposition home or self-care (01) | DRG 389 ==
LOC: ERS 16:47 → SURG A 20:47
PROVIDERS: ADMIT Internal Medicine; ATTEND Physician Assistant
PROC: 0D9670Z Drainage of Stomach with Drainage Device, Via Natural or Artificial Opening (ICD-10-PCS; principal; 2020-07-16)
DX: K56.609 Unspecified intestinal obstruction, unspecified as to partial versus complete obstruction (principal); J44.1 Chronic obstructive pulmonary disease with (acute) exacerbation; D72.829 Elevated white blood cell count, unspecified; R91.1 Solitary pulmonary nodule; F32.9 Major depressive disorder, single episode, unspecified; I25.10 Atherosclerotic heart disease of native coronary artery without angina pectoris; I10 Essential (primary) hypertension; E78.5 Hyperlipidemia, unspecified; E78.00 Pure hypercholesterolemia, unspecified; Z96.652 Presence of left artificial knee joint; F17.210 Nicotine dependence, cigarettes, uncomplicated; Z90.49 Acquired absence of other specified parts of digestive tract; Z90.710 Acquired absence of both cervix and uterus; Z88.0 Allergy status to penicillin; Z79.899 Other long term (current) drug therapy; Z79.82 Long term (current) use of aspirin; Z79.51 Long term (current) use of inhaled steroids; Z79.52 Long term (current) use of systemic steroids; Z82.49 Family history of ischemic heart disease and other diseases of the circulatory system
CPT/HCPCS: 36415; 71045; 74177; 74250; 80048; 80053; 81003; 81015; 83690; 84484; 85025; 93005; 94640; 94760; 96374; 96375; J2270; J2405; J2920; J3010; J3480; J7611; J7620; Q9967; U0002; U0005

== ENCOUNTER 2021-11-21 14:06 | Emergency (ER) | payer MEDICARE, OTHER ==
[2021-11-21 14:57] LABS: #Basophils 0.1 thou/uL (0.0-0.2); #Eosinphils 0.1 thou/uL (0.0-0.7); #Lymphocytes 1.6 thou/uL (1.20-3.40); #Monocytes 0.7 thou/uL (0.11-0.59); %Basophils 0.4 % (0.0-1.0); %Eosinophils 0.5 % (0.0-10.0); %Lymphocytes 8.1 % (21.0-51.0); %Monocytes 3.5 % (0.0-10.0); %Neutrophils 87.6 % (42.0-75.0); Mean Corpuscular HGB CONC 32.5 g/dL (32.0-36.0); Mean Corpuscular Hemoglobin 30.6 pg (27.0-31.0); Mean Corpuscular Volume 94.1 fL (78.0-98.0); Mean Platelet Volume 8.3 fL (7.4-10.4); Platelet Count 348 thou/uL (130-400); RBC Distribution Width 13.1 % (11.5-14.5); Red Blood Cell (RBC) Count 4.25 mill/uL (4.20-5.40); White Blood Cell (WBC) Count 19.4 thou/uL (4.8-10.8)
[2021-11-21 15:38] LABS: ALT (SGPT) 16 U/L (8-55); AST (SGOT) 16 U/L (5-34); Albumin 3.5 g/dL (3.4-4.8); Alkaline Phosphatase 86 U/L (40-110); Anion Gap 14 mmol/L (10-20); BUN (Urea Nitrogen) 9 mg/dL (9.8-20.1); Bilirubin, Total 0.2 mg/dL (0.2-1.2); Calc. Creatinine Clearance 0 mL/min (70-130); Calcium 8.4 mg/dL (7.8-10.44); Carbon Dioxide 24 mmol/L (23-31); Chloride 103 mmol/L (98-107); Estimated GFR 62; Globulin 2.4 g/dL (2.4-3.5); Glucose 110 mg/dL (83-110); Potassium 3.5 mmol/L (3.5-5.1); Protein, Total 5.9 g/dL (5.8-8.1); Sodium 137 mmol/L (136-145)
[2021-11-21] MEDS ORDERED: Dexamethasone 10 MG/ML VIAL ONE (15:54)
== END 2021-11-21 16:12 | disposition home or self-care (01) ==
LOC: ERS 14:06
DX: J44.1 Chronic obstructive pulmonary disease with (acute) exacerbation (principal); I10 Essential (primary) hypertension; E78.00 Pure hypercholesterolemia, unspecified; Z87.891 Personal history of nicotine dependence; I25.10 Atherosclerotic heart disease of native coronary artery without angina pectoris
CPT/HCPCS: 36415; 71045; 80053; 83880; 84484; 85025; 93005; 94640; 96374; J1100

== ENCOUNTER 2022-01-28 13:13 | Outpatient (CLI) | payer MEDICARE, OTHER | END 2022-01-28 13:14 | disposition home or self-care (01) | LOC: RAD 13:13 | PROVIDERS: ATTEND Internal Medicine Critical Care Medicine | DX: R06.00 Dyspnea, unspecified (principal) | CPT/HCPCS: 71046 ==

== ENCOUNTER 2022-05-02 05:59 | Inpatient (IN) | payer MEDICARE, OTHER ==
[2022-05-02] MEDS ORDERED: Magnesium 2 GM/50 ML BAG (IN WATER) ONE (06:24)
[2022-05-02] MEDS ORDERED: methylPREDNISolone Sod Succ/PF 125 MG/2 ML VIAL ONE (06:28)
[2022-05-02 06:39] LABS: Hemoglobin 12.7 g/dL (12.0-16.0); Mean Corpuscular HGB CONC 31.7 g/dL (32.0-36.0); Mean Corpuscular Hemoglobin 27.6 pg (27.0-31.0); Mean Corpuscular Volume 87.1 fl (78.0-98.0); Mean Platelet Volume 8.4 fL (7.4-10.4); Platelet Count 316 10x3/uL (130-400); Red Blood Cell (RBC) Count 4.61 mill/uL (4.20-5.40); White Blood Cell (WBC) Count 20.8 10x3/uL (4.8-10.8)
[2022-05-02] MEDS ORDERED: Piperacillin/Tazobactam 4.5 GM VIAL ONE (06:48)
[2022-05-02 06:54] LABS: CK (CPK) 30 U/L (29-168); CRP (Inflammatory) 3.11 mg/dL (= or < 0.5); Lipase 23 U/L (8-78); Magnesium 2.1 mg/dL (1.6-2.6)
[2022-05-02 06:55] LABS: ALT (SGPT) 27 U/L (8-55); AST (SGOT) 36 U/L (5-34); Alkaline Phosphatase 96 U/L (40-110); Anion Gap 19 mmol/L (10-20); BUN (Urea Nitrogen) 25 mg/dL (9.8-20.1); Bilirubin, Total 0.6 mg/dL (0.2-1.2); Calc. Creatinine Clearance 0 mL/min (70-130); Calcium 9.7 mg/dL (7.8-10.44); Carbon Dioxide 23 mmol/L (23-31); Chloride 97 mmol/L (98-107); Estimated GFR 47; Globulin 3.8 g/dL (2.4-3.5); Glucose 119 mg/dL (83-110); Potassium 4.2 mmol/L (3.5-5.1); Protein, Total 7.8 g/dL (5.8-8.1); Sodium 135 mmol/L (136-145)
[2022-05-02 06:57] LABS: INR-International Normal Ratio 1.1; PTT 32.3 sec (22.9-36.1); Prothrombin Time 14.8 sec (12.0-14.7)
[2022-05-02 06:58] LABS: D-Dimer Test 0.63 *mcg/mL (0.27-0.43)
[2022-05-02 07:11] LABS: SARS-CoV-2 NAA Rapid Test Not Detected (NotDetected)
[2022-05-02 07:15] LABS: CKMB 1.2 ng/mL (0-6.6)
[2022-05-02] MEDS ORDERED: Digoxin 0.25 MG TAB ONE (07:34)
[2022-05-02 07:49] LABS: Anisocytosis SLIGHT = 6-15 cells (100X) (0-5/hpf); Large Platelets SLIGHT; Lymphocytes 11 % (21-51); MDiff Complete? YES; Monocytes 5 % (0-10); Neutrophil 83 % (42-75); Ovalocytes SLIGHT = 2-5 cells (100X) (0-1/hpf); Platelet Morphology Comment Appears Adequate; Vacuoles SLIGHT
[2022-05-02] MEDS ORDERED: Sodium Chloride 0.9% 500 ML IV SCH (08:15)
[2022-05-02] MEDS ORDERED: Digoxin 0.5 MG/2 ML AMP SLOW IVP SCH (08:15)
[2022-05-02] MEDS ORDERED: cefTRIAXone\\ROCEPHIN 1 GM in Sodium Chloride 0.9% 100 ML IVPB SCH (09:00)
[2022-05-02] MEDS ORDERED: Vancomycin 1 GM/200 ML (FROZEN) BAG ONE (09:05)
[2022-05-02] MEDS ORDERED: Digoxin 0.5 MG/2 ML AMP ONE (09:05)
[2022-05-02 09:26] LABS: Lactic Acid 1.9 mmol/L (0.5-2.2)
[2022-05-02 09:45] LABS: Troponin I 0.042 ng/mL (< 0.028)
[2022-05-02 11:12] LABS: Bilirubin Negative (Negative); Blood, Urine Negative (Negative); Clarity Extra Turbid (Clear); Glucose, Urine (Dipstick) Normal (Negative); Ketone, Urine Trace mg/dL (Negative); Leukocyte Negative Leu/uL (Negative); Nitrite Negative (Negative); Protein, Urine (Dipstick) 20 mg/dL (Neg-Trace); Specific Gravity, Urine 1.026 (1.002-1.036); Urobilinogen Normal mg/dL (Less than 2)
[2022-05-02 13:56] LABS: Troponin I 0.036 ng/mL (< 0.028)
[2022-05-02 16:13] VITALS: BMI 30.2
[2022-05-02] MEDS: Escitalopram Oxalate 20 mg Tablet PO SCH (16:37)
[2022-05-02] MEDS: methylPREDNISolone Sod Succ 40 MG VIAL IVP SCH ×3 (16:39→23:21)
[2022-05-02] MEDS: Ipratropium/Albuterol 3 ML NEB NEB PRN ×2 (16:52→22:42)
[2022-05-02] MEDS: Sodium Chloride 0.9% 1,000 ML IV SCH ×2 (17:12→20:19)
[2022-05-02] MEDS: cefTRIAXone\\ROCEPHIN 1 GM in Sodium Chloride 0.9% 100 ML IVPB SCH (17:13)
[2022-05-02] MEDS: Ipratropium/Albuterol 3 ML NEB NEB SCH (18:41)
[2022-05-03] MEDS: Diltiazem HCl 125 MG, Admixture Fee 1 EACH in Sodium Chloride 0.9% 100 ML IVPB SCH (00:30)
[2022-05-03] MEDS: Ipratropium/Albuterol 3 ML NEB NEB SCH ×4 (02:19→18:27)
[2022-05-03] MEDS: methylPREDNISolone Sod Succ 40 MG VIAL IVP SCH ×3 (05:26→17:33)
[2022-05-03] MEDS: Acetaminophen 325 MG TAB PO PRN (06:50)
[2022-05-03 07:04] LABS: #Lymphocytes 0.7 thou/uL (1.20-3.40); #Monocytes 0.5 thou/uL (0.11-0.59); #Neutrophils 17.3 thou/uL (1.40-6.50); %Eosinophils 0.2 % (0.0-10.0); %Lymphocytes 3.8 % (21.0-51.0); %Monocytes 2.4 % (0.0-10.0); %Neutrophils 93.6 % (42.0-75.0); Hemoglobin 10.7 g/dL (12.0-16.0); Mean Corpuscular Hemoglobin 27.9 pg (27.0-31.0); Mean Corpuscular Volume 87.1 fl (78.0-98.0); Mean Platelet Volume 8.5 fL (7.4-10.4); Platelet Count 289 10x3/uL (130-400); RBC Distribution Width 14.4 % (11.5-14.5); Red Blood Cell (RBC) Count 3.84 mill/uL (4.20-5.40); White Blood Cell (WBC) Count 18.5 10x3/uL (4.8-10.8)
[2022-05-03 07:36] LABS: ALT (SGPT) 23 U/L (8-55); AST (SGOT) 22 U/L (5-34); Albumin 3.5 g/dL (3.4-4.8); Alkaline Phosphatase 74 U/L (40-110); Anion Gap 18 mmol/L (10-20); BUN (Urea Nitrogen) 36 mg/dL (9.8-20.1); Bilirubin, Total 0.3 mg/dL (0.2-1.2); Calc. Creatinine Clearance 30 mL/min (70-130); Calcium 8.6 mg/dL (7.8-10.44); Carbon Dioxide 19 mmol/L (23-31); Chloride 100 mmol/L (98-107); Estimated GFR 29; Globulin 2.8 g/dL (2.4-3.5); Glucose 133 mg/dL (83-110); Protein, Total 6.3 g/dL (5.8-8.1); Sodium 133 mmol/L (136-145)
[2022-05-03] MEDS: Escitalopram Oxalate 20 mg Tablet PO SCH (09:47)
[2022-05-03] MEDS ORDERED: HYDROcodone/Acetaminophen 5/325 mg Tablet PO SCH (10:45)
[2022-05-03] MEDS: Ipratropium/Albuterol 3 ML NEB NEB PRN (11:00)
[2022-05-03] MEDS: Sodium Chloride 0.9% 1,000 ML IV SCH (13:12)
[2022-05-03] MEDS: cefTRIAXone\\ROCEPHIN 1 GM in Sodium Chloride 0.9% 100 ML IVPB SCH (17:34)
[2022-05-04] MEDS: Ipratropium/Albuterol 3 ML NEB NEB SCH ×5 (00:16→23:25)
[2022-05-04] MEDS: Sodium Chloride 0.9% 1,000 ML IV SCH ×2 (00:20→14:57)
[2022-05-04] MEDS: methylPREDNISolone Sod Succ 40 MG VIAL IVP SCH ×5 (00:20→23:17)
[2022-05-04] MEDS: Diltiazem HCl 125 MG, Admixture Fee 1 EACH in Sodium Chloride 0.9% 100 ML IVPB SCH (00:21)
[2022-05-04] MEDS: Acetaminophen 325 MG TAB PO PRN (04:23)
[2022-05-04] MEDS: Escitalopram Oxalate 20 mg Tablet PO SCH (08:09)
[2022-05-04] MEDS ORDERED: ALPRAZolam 0.25 MG TAB PO SCH (09:15)
[2022-05-04 09:24] LABS: Anion Gap 16 mmol/L (10-20); BUN (Urea Nitrogen) 43 mg/dL (9.8-20.1); Calc. Creatinine Clearance 32 mL/min (70-130); Calcium 8.4 mg/dL (7.8-10.44); Carbon Dioxide 19 mmol/L (23-31); Chloride 100 mmol/L (98-107); Estimated GFR 30; Glucose 127 mg/dL (83-110); Sodium 131 mmol/L (136-145)
[2022-05-04] MEDS: cefTRIAXone\\ROCEPHIN 1 GM in Sodium Chloride 0.9% 100 ML IVPB SCH (17:14)
[2022-05-04] MEDS ORDERED: HYDROcodone/Acetaminophen 5/325 mg Tablet PO PRN (17:32)
[2022-05-04] MEDS: Rosuvastatin 20 MG TAB PO SCH (20:14)
[2022-05-04] MEDS: Temazepam 15 MG CAP PO SCH (20:14)
[2022-05-05 04:08] LABS: #Lymphocytes 0.3 thou/uL (1.20-3.40); #Monocytes 0.5 thou/uL (0.11-0.59); #Neutrophils 18.1 thou/uL (1.40-6.50); %Eosinophils 0.2 % (0.0-10.0); %Lymphocytes 1.5 % (21.0-51.0); %Monocytes 2.6 % (0.0-10.0); %Neutrophils 95.8 % (42.0-75.0); Hemoglobin 10.6 g/dL (12.0-16.0); Mean Corpuscular HGB CONC 31.5 g/dL (32.0-36.0); Mean Corpuscular Hemoglobin 27.7 pg (27.0-31.0); Mean Platelet Volume 8.7 fL (7.4-10.4); Platelet Count 284 10x3/uL (130-400); RBC Distribution Width 14.8 % (11.5-14.5); Red Blood Cell (RBC) Count 3.83 mill/uL (4.20-5.40); White Blood Cell (WBC) Count 18.9 10x3/uL (4.8-10.8)
[2022-05-05 04:31] LABS: Anion Gap 15 mmol/L (10-20); BUN (Urea Nitrogen) 45 mg/dL (9.8-20.1); Calc. Creatinine Clearance 36 mL/min (70-130); Calcium 8.6 mg/dL (7.8-10.44); Carbon Dioxide 21 mmol/L (23-31); Chloride 104 mmol/L (98-107); Estimated GFR 34; Glucose 117 mg/dL (83-110); Potassium 4.6 mmol/L (3.5-5.1); Sodium 135 mmol/L (136-145)
[2022-05-05] MEDS: methylPREDNISolone Sod Succ 40 MG VIAL IVP SCH ×3 (05:38→18:06)
[2022-05-05] MEDS: Ipratropium/Albuterol 3 ML NEB NEB SCH ×4 (07:14→23:05)
[2022-05-05] MEDS: Escitalopram Oxalate 20 mg Tablet PO SCH (08:10)
[2022-05-05] MEDS: Sodium Chloride 0.9% 1,000 ML IV SCH (08:11)
[2022-05-05] MEDS ORDERED: Aspirin 81 mg Enteric Coated Tablet PO SCH (09:00)
[2022-05-05] MEDS ORDERED: Diltiazem HCl CD 300 mg Capsule PO SCH (09:00)
[2022-05-05] MEDS: ALPRAZolam 0.25 MG TAB PO PRN (14:17)
[2022-05-05] MEDS: cefTRIAXone\\ROCEPHIN 1 GM in Sodium Chloride 0.9% 100 ML IVPB SCH (18:06)
[2022-05-05] MEDS: Mometasone/Formoterol 200/5 60 PUFF INH SCH (18:45)
[2022-05-05] MEDS: Apixaban 2.5 MG TAB PO SCH (20:12)
[2022-05-05] MEDS: Rosuvastatin 20 MG TAB PO SCH (20:12)
[2022-05-05] MEDS: Temazepam 15 MG CAP PO SCH (20:12)
[2022-05-06] MEDS: methylPREDNISolone Sod Succ 40 MG VIAL IVP SCH ×4 (00:40→17:02)
[2022-05-06 04:07] LABS: #Lymphocytes 0.4 thou/uL (1.20-3.40); #Monocytes 0.4 thou/uL (0.11-0.59); #Neutrophils 15.4 thou/uL (1.40-6.50); %Eosinophils 0.1 % (0.0-10.0); %Lymphocytes 2.5 % (21.0-51.0); %Monocytes 2.4 % (0.0-10.0); %Neutrophils 95.1 % (42.0-75.0); Hemoglobin 9.9 g/dL (12.0-16.0); Mean Corpuscular HGB CONC 31.4 g/dL (32.0-36.0); Mean Corpuscular Hemoglobin 27.8 pg (27.0-31.0); Mean Corpuscular Volume 88.4 fl (78.0-98.0); Platelet Count 263 10x3/uL (130-400); RBC Distribution Width 14.7 % (11.5-14.5); Red Blood Cell (RBC) Count 3.57 mill/uL (4.20-5.40); White Blood Cell (WBC) Count 16.2 10x3/uL (4.8-10.8)
[2022-05-06 04:28] LABS: Anion Gap 15 mmol/L (10-20); BUN (Urea Nitrogen) 38 mg/dL (9.8-20.1); Calc. Creatinine Clearance 47 mL/min (70-130); Calcium 8.6 mg/dL (7.8-10.44); Carbon Dioxide 21 mmol/L (23-31); Chloride 104 mmol/L (98-107); Estimated GFR 47; Glucose 125 mg/dL (83-110); Potassium 4.7 mmol/L (3.5-5.1); Sodium 135 mmol/L (136-145)
[2022-05-06] MEDS: Diltiazem HCl CD 300 mg Capsule PO SCH (08:08)
[2022-05-06] MEDS: Apixaban 2.5 MG TAB PO SCH (08:08)
[2022-05-06] MEDS: Escitalopram Oxalate 20 mg Tablet PO SCH (08:08)
[2022-05-06] MEDS: Mometasone/Formoterol 200/5 60 PUFF INH SCH ×2 (08:18→18:42)
[2022-05-06] MEDS: Ipratropium/Albuterol 3 ML NEB NEB SCH ×4 (08:21→23:21)
[2022-05-06] MEDS ORDERED: Apixaban 2.5 MG TAB PO SCH (08:52)
[2022-05-06] MEDS: Apixaban 5 MG TAB PO SCH ×2 (09:34→20:14)
[2022-05-06 12:32] LABS: Free T4 (Free Thyroxine) 0.96 ng/dL (0.70-1.48); T4 6.6 ug/dL (4.87-11.72); Thyroid Stimulating Hormone 0.1776 uIU/mL (0.35-4.94)
[2022-05-06] MEDS: cefTRIAXone\\ROCEPHIN 1 GM in Sodium Chloride 0.9% 100 ML IVPB SCH (17:02)
[2022-05-06] MEDS: Acetaminophen 325 MG TAB PO PRN (17:02)
[2022-05-06] MEDS: Rosuvastatin 20 MG TAB PO SCH (20:14)
[2022-05-06] MEDS: Temazepam 15 MG CAP PO SCH (20:15)
[2022-05-07] MEDS: methylPREDNISolone Sod Succ 40 MG VIAL IVP SCH ×5 (00:06→23:56)
[2022-05-07 05:06] LABS: Actual Bicarbonate (HCO3a) 26.6 mEq/L (22-28); Base Excess (BEa) 0.9 mEq/L (-2.0 to +3.0); CO2 Tension 46.8 mmHg (35.0-45.0); Carboxyhemoglobin (COHb) 0.4 gm% (0.0-3.0); Hemoglobin (Hb) 10.9 g/dL (12.0-16.0); O2 Tension (PaO2), arterial 139.1 mmHg (> 70.0); Potassium - ABG Lab 4.61 mmol/L (3.70-5.30); pH, Arterial 7.37 (7.35-7.45)
[2022-05-07 05:08] LABS: Puncture Site RRA
[2022-05-07] MEDS: Mometasone/Formoterol 200/5 60 PUFF INH SCH (07:20)
[2022-05-07] MEDS: Ipratropium/Albuterol 3 ML NEB NEB SCH ×5 (07:20→22:04)
[2022-05-07] MEDS: Apixaban 5 MG TAB PO SCH ×2 (08:47→19:53)
[2022-05-07] MEDS: Escitalopram Oxalate 20 mg Tablet PO SCH (08:47)
[2022-05-07] MEDS: Diltiazem HCl CD 300 mg Capsule PO SCH (08:47)
[2022-05-07] MEDS: cefTRIAXone\\ROCEPHIN 1 GM in Sodium Chloride 0.9% 100 ML IVPB SCH (17:30)
[2022-05-07] MEDS: Budesonide 0.5 MG/2 ML NEB NEB SCH (18:55)
[2022-05-07] MEDS: Arformoterol 15 MCG/2 ML NEB NEB SCH (18:56)
[2022-05-07] MEDS: Rosuvastatin 20 MG TAB PO SCH (19:53)
[2022-05-07] MEDS: Temazepam 15 MG CAP PO SCH (19:53)
[2022-05-07] MEDS: ALPRAZolam 0.25 MG TAB PO PRN (19:53)
[2022-05-08] MEDS: Ipratropium/Albuterol 3 ML NEB NEB SCH ×6 (02:10→23:13)
[2022-05-08 03:34] LABS: #Lymphocytes 0.3 thou/uL (1.20-3.40); #Monocytes 0.4 thou/uL (0.11-0.59); #Neutrophils 18.4 thou/uL (1.40-6.50); %Eosinophils 0.1 % (0.0-10.0); %Lymphocytes 1.5 % (21.0-51.0); %Monocytes 1.8 % (0.0-10.0); %Neutrophils 96.6 % (42.0-75.0); Hemoglobin 10.5 g/dL (12.0-16.0); Mean Corpuscular HGB CONC 32.1 g/dL (32.0-36.0); Mean Corpuscular Hemoglobin 28.1 pg (27.0-31.0); Mean Corpuscular Volume 87.4 fl (78.0-98.0); Mean Platelet Volume 8.6 fL (7.4-10.4); Platelet Count 266 10x3/uL (130-400); RBC Distribution Width 14.7 % (11.5-14.5); Red Blood Cell (RBC) Count 3.74 mill/uL (4.20-5.40)
[2022-05-08 03:55] LABS: Anion Gap 12 mmol/L (10-20); BUN (Urea Nitrogen) 36 mg/dL (9.8-20.1); Calc. Creatinine Clearance 58 mL/min (70-130); Calcium 9.1 mg/dL (7.8-10.44); Carbon Dioxide 27 mmol/L (23-31); Chloride 104 mmol/L (98-107); Estimated GFR 58; Glucose 135 mg/dL (83-110); Potassium 4.2 mmol/L (3.5-5.1); Sodium 139 mmol/L (136-145)
[2022-05-08] MEDS: methylPREDNISolone Sod Succ 40 MG VIAL IVP SCH ×3 (05:53→17:41)
[2022-05-08] MEDS: Budesonide 0.5 MG/2 ML NEB NEB SCH ×2 (08:03→19:43)
[2022-05-08] MEDS: Arformoterol 15 MCG/2 ML NEB NEB SCH ×2 (08:03→19:43)
[2022-05-08] MEDS: ALPRAZolam 0.25 MG TAB PO PRN (09:15)
[2022-05-08] MEDS: Escitalopram Oxalate 20 mg Tablet PO SCH (09:15)
[2022-05-08] MEDS: Apixaban 5 MG TAB PO SCH ×2 (09:15→21:44)
[2022-05-08] MEDS: Diltiazem HCl CD 300 mg Capsule PO SCH (09:15)
[2022-05-08] MEDS: cefTRIAXone\\ROCEPHIN 1 GM in Sodium Chloride 0.9% 100 ML IVPB SCH (17:41)
[2022-05-08] MEDS: Rosuvastatin 20 MG TAB PO SCH (21:44)
[2022-05-08] MEDS: Temazepam 15 MG CAP PO SCH (21:44)
[2022-05-09] MEDS: methylPREDNISolone Sod Succ 40 MG VIAL IVP SCH ×4 (00:19→17:00)
[2022-05-09] MEDS: Ipratropium/Albuterol 3 ML NEB NEB SCH ×5 (03:23→19:47)
[2022-05-09] MEDS: Arformoterol 15 MCG/2 ML NEB NEB SCH ×2 (07:02→19:47)
[2022-05-09] MEDS: Budesonide 0.5 MG/2 ML NEB NEB SCH ×2 (07:02→19:47)
[2022-05-09] MEDS: Escitalopram Oxalate 20 mg Tablet PO SCH (09:35)
[2022-05-09] MEDS: Diltiazem HCl CD 300 mg Capsule PO SCH (09:35)
[2022-05-09] MEDS: Apixaban 5 MG TAB PO SCH ×2 (09:35→20:08)
[2022-05-09] MEDS: ALPRAZolam 0.25 MG TAB PO PRN (11:50)
[2022-05-09] MEDS: cefTRIAXone\\ROCEPHIN 1 GM in Sodium Chloride 0.9% 100 ML IVPB SCH (16:59)
[2022-05-09] MEDS: Nicotine 7 MG PATCH TD SCH (17:18)
[2022-05-09] MEDS: Temazepam 15 MG CAP PO SCH (20:08)
[2022-05-09] MEDS: Rosuvastatin 20 MG TAB PO SCH (20:08)
[2022-05-10] MEDS: Ipratropium/Albuterol 3 ML NEB NEB SCH ×7 (00:20→22:07)
[2022-05-10] MEDS: methylPREDNISolone Sod Succ 40 MG VIAL IVP SCH ×4 (00:51→17:01)
[2022-05-10 02:58] LABS: SARS-CoV-2 NAA Rapid Test Not Detected (NotDetected)
[2022-05-10] MEDS: Budesonide 0.5 MG/2 ML NEB NEB SCH ×2 (08:17→18:30)
[2022-05-10] MEDS: Arformoterol 15 MCG/2 ML NEB NEB SCH ×2 (08:17→18:30)
[2022-05-10] MEDS: Apixaban 5 MG TAB PO SCH ×2 (09:45→20:28)
[2022-05-10] MEDS: Escitalopram Oxalate 20 mg Tablet PO SCH (09:45)
[2022-05-10] MEDS: Diltiazem HCl CD 300 mg Capsule PO SCH (09:45)
[2022-05-10 11:17] LABS: Anion Gap 10 mmol/L (10-20); BUN (Urea Nitrogen) 33 mg/dL (9.8-20.1); Calc. Creatinine Clearance 71 mL/min (70-130); Carbon Dioxide 31 mmol/L (23-31); Chloride 104 mmol/L (98-107); Estimated GFR 74; Glucose 144 mg/dL (83-110); Potassium 4.1 mmol/L (3.5-5.1); Sodium 141 mmol/L (136-145)
[2022-05-10 11:45] LABS: Hypersemented Neutrophil SLIGHT; Lymphocytes 2 % (21-51); MDiff Complete? YES; Mean Corpuscular HGB CONC 31.2 g/dL (32.0-36.0); Mean Corpuscular Hemoglobin 27.4 pg (27.0-31.0); Mean Corpuscular Volume 87.7 fl (78.0-98.0); Mean Platelet Volume 8.7 fL (7.4-10.4); Monocytes 4 % (0-10); Neutrophil 94 % (42-75); Platelet Count 271 10x3/uL (130-400); Platelet Morphology Comment Appears Adequate; Polychromasia SLIGHT = 2-3 cells (100X) (0-2/hpf); RBC Distribution Width 14.9 % (11.5-14.5); Red Blood Cell (RBC) Count 4.03 mill/uL (4.20-5.40); White Blood Cell (WBC) Count 21.2 10x3/uL (4.8-10.8)
[2022-05-10] MEDS: cefTRIAXone\\ROCEPHIN 1 GM in Sodium Chloride 0.9% 100 ML IVPB SCH (17:01)
[2022-05-10] MEDS: Nicotine 7 MG PATCH TD SCH (17:01)
[2022-05-10] MEDS: Rosuvastatin 20 MG TAB PO SCH (20:28)
[2022-05-10] MEDS: Temazepam 15 MG CAP PO SCH (20:28)
[2022-05-11] MEDS: methylPREDNISolone Sod Succ 40 MG VIAL IVP SCH ×5 (01:16→23:46)
[2022-05-11] MEDS: Ipratropium/Albuterol 3 ML NEB NEB SCH ×6 (02:40→21:46)
[2022-05-11] MEDS: Arformoterol 15 MCG/2 ML NEB NEB SCH ×2 (07:08→19:11)
[2022-05-11] MEDS: Budesonide 0.5 MG/2 ML NEB NEB SCH ×2 (07:08→19:11)
[2022-05-11] MEDS: Diltiazem HCl CD 300 mg Capsule PO SCH (08:34)
[2022-05-11] MEDS: Escitalopram Oxalate 20 mg Tablet PO SCH (08:34)
[2022-05-11] MEDS: Apixaban 5 MG TAB PO SCH ×2 (08:34→21:29)
[2022-05-11] MEDS: Nicotine 7 MG PATCH TD SCH (17:14)
[2022-05-11] MEDS: Rosuvastatin 20 MG TAB PO SCH (21:29)
[2022-05-11] MEDS: Temazepam 15 MG CAP PO SCH (21:29)
[2022-05-12] MEDS: Ipratropium/Albuterol 3 ML NEB NEB SCH ×6 (02:18→23:11)
[2022-05-12] MEDS: methylPREDNISolone Sod Succ 40 MG VIAL IVP SCH (06:18)
[2022-05-12] MEDS: Arformoterol 15 MCG/2 ML NEB NEB SCH ×2 (07:23→18:28)
[2022-05-12] MEDS: Budesonide 0.5 MG/2 ML NEB NEB SCH ×2 (07:26→18:28)
[2022-05-12] MEDS: Escitalopram Oxalate 20 mg Tablet PO SCH (11:39)
[2022-05-12] MEDS: Diltiazem HCl CD 300 mg Capsule PO SCH (11:39)
[2022-05-12] MEDS: Apixaban 5 MG TAB PO SCH ×2 (11:40→20:10)
[2022-05-12] MEDS: Nicotine 7 MG PATCH TD SCH (18:00)
[2022-05-12] MEDS: Rosuvastatin 20 MG TAB PO SCH (20:10)
[2022-05-12] MEDS: Temazepam 15 MG CAP PO SCH (20:10)
[2022-05-13] MEDS: Ipratropium/Albuterol 3 ML NEB NEB SCH ×6 (03:01→23:28)
[2022-05-13] MEDS ORDERED: Docusate 100 MG CAP PO PRN (06:07)
[2022-05-13] MEDS: Budesonide 0.5 MG/2 ML NEB NEB SCH ×2 (08:36→19:31)
[2022-05-13] MEDS: Arformoterol 15 MCG/2 ML NEB NEB SCH ×2 (08:37→19:32)
[2022-05-13] MEDS: predniSONE 20 MG TAB PO SCH (09:16)
[2022-05-13] MEDS: Apixaban 5 MG TAB PO SCH ×2 (09:16→21:25)
[2022-05-13] MEDS: Escitalopram Oxalate 20 mg Tablet PO SCH (09:17)
[2022-05-13] MEDS: Polyethylene Glycol 3350 17 GM Packet PO SCH (09:17)
[2022-05-13] MEDS: Diltiazem HCl CD 300 mg Capsule PO SCH (09:22)
[2022-05-13] MEDS ORDERED: cloNIDine 0.1 MG TAB PO PRN (11:39)
[2022-05-13] MEDS: Nicotine 7 MG PATCH TD SCH (16:31)
[2022-05-13] MEDS: Rosuvastatin 20 MG TAB PO SCH (21:25)
[2022-05-13] MEDS: Temazepam 15 MG CAP PO SCH (21:28)
[2022-05-14] MEDS: Ipratropium/Albuterol 3 ML NEB NEB SCH ×4 (02:14→15:24)
[2022-05-14] MEDS: Arformoterol 15 MCG/2 ML NEB NEB SCH (08:16)
[2022-05-14] MEDS: Budesonide 0.5 MG/2 ML NEB NEB SCH (08:17)
[2022-05-14] MEDS: Apixaban 5 MG TAB PO SCH (08:55)
[2022-05-14] MEDS: Escitalopram Oxalate 20 mg Tablet PO SCH (08:55)
[2022-05-14] MEDS: Diltiazem HCl CD 300 mg Capsule PO SCH (08:55)
[2022-05-14] MEDS: predniSONE 20 MG TAB PO SCH (08:55)
[2022-05-14] MEDS: Polyethylene Glycol 3350 17 GM Packet PO SCH (08:55)
[2022-05-14] MEDS ORDERED: Bisacodyl 5 MG TAB PO SCH (11:45)
[2022-05-14 11:55] VITALS: BP 128/59; TEMP 97.9
== END 2022-05-14 15:53 | disposition swing bed (61) | DRG 189 ==
LOC: ERS 05:59 → SUATTDRO 05:59 → IMCU/EMU 07:23 → 2NO 05-11 16:17
PROVIDERS: ADMIT Internal Medicine; ATTEND Internal Medicine
PROC: 5A09457 Assistance with Respiratory Ventilation, 24-96 Consecutive Hours, Continuous Positive Airway Pressure (ICD-10-PCS; principal; 2022-05-02)
DX: J96.21 Acute and chronic respiratory failure with hypoxia (principal); I47.1 Supraventricular tachycardia; J44.1 Chronic obstructive pulmonary disease with (acute) exacerbation; N17.9 Acute kidney failure, unspecified; E87.20 Acidosis, unspecified; R65.10 Systemic inflammatory response syndrome (SIRS) of non-infectious origin without acute organ dysfunction; J45.901 Unspecified asthma with (acute) exacerbation; Z66 Do not resuscitate; I48.0 Paroxysmal atrial fibrillation; I35.0 Nonrheumatic aortic (valve) stenosis; E66.9 Obesity, unspecified; I25.10 Atherosclerotic heart disease of native coronary artery without angina pectoris; E78.5 Hyperlipidemia, unspecified; Z96.652 Presence of left artificial knee joint; F41.9 Anxiety disorder, unspecified; F32.A Depression, unspecified; I12.9 Hypertensive chronic kidney disease with stage 1 through stage 4 chronic kidney disease, or unspecified chronic kidney disease; N18.9 Chronic kidney disease, unspecified; Z20.822 Contact with and (suspected) exposure to COVID-19; Z90.49 Acquired absence of other specified parts of digestive tract; Z90.710 Acquired absence of both cervix and uterus; Z87.891 Personal history of nicotine dependence; Z88.0 Allergy status to penicillin; Z79.82 Long term (current) use of aspirin; Z79.51 Long term (current) use of inhaled steroids; Z79.52 Long term (current) use of systemic steroids; Z79.899 Other long term (current) drug therapy; Z68.30 Body mass index [BMI] 30.0-30.9, adult
CPT/HCPCS: 36415; 36600; 51701; 71045; 80048; 80053; 81003; 82550; 82553; 82805; 83605; 83690; 83735; 83880; 84436; 84439; 84443; 84479; 84484; 85025; 85379; 85610; 85730; 86140; 87040; 87086; 87811; 93005; 93306; 94640; 94660; 94760; 96365; 96366; 96368; 96374; 96375; J0696; J1160; J1650; J2543; J2920; J2930; J3370-JW; J3475; J3490; J7050; J7512; J7620; J7626; U0002

== ENCOUNTER 2022-06-08 02:05 | Inpatient (IN) | payer MEDICARE, OTHER ==
[2022-06-08] MEDS ORDERED: Magnesium 2 GM/50 ML BAG (IN WATER) ONE (02:37)
[2022-06-08] MEDS ORDERED: Ipratropium Bromide 2.5 ml Neb ONE (02:46)
[2022-06-08] MEDS ORDERED: Albuterol 2.5 MG/0.5 ML NEB ONE (02:46)
[2022-06-08 03:08] LABS: #Eosinphils 0.1 thou/uL (0.0-0.7); %Basophils 0.2 % (0.0-1.0); %Eosinophils 0.4 % (0.0-10.0); %Lymphocytes 7.5 % (21.0-51.0); %Monocytes 7.6 % (0.0-10.0); %Neutrophils 84.3 % (42.0-75.0); Hemoglobin 11.5 g/dL (12.0-16.0); Mean Corpuscular HGB CONC 32.1 g/dL (32.0-36.0); Mean Corpuscular Hemoglobin 28.6 pg (27.0-31.0); Mean Corpuscular Volume 89.2 fl (78.0-98.0); Platelet Count 275 10x3/uL (130-400); Red Blood Cell (RBC) Count 4.04 mill/uL (4.20-5.40)
[2022-06-08 03:28] LABS: ALT (SGPT) 14 U/L (8-55); AST (SGOT) 12 U/L (5-34); Albumin 3.1 g/dL (3.4-4.8); Alkaline Phosphatase 94 U/L (40-110); Anion Gap 12 mmol/L (10-20); BUN (Urea Nitrogen) 11 mg/dL (9.8-20.1); Bilirubin, Total 0.2 mg/dL (0.2-1.2); Calc. Creatinine Clearance 0 mL/min (70-130); Calcium 9.3 mg/dL (7.8-10.44); Carbon Dioxide 35 mmol/L (23-31); Chloride 97 mmol/L (98-107); Estimated GFR 66; Globulin 3.1 g/dL (2.4-3.5); Glucose 125 mg/dL (83-110); Potassium 3.4 mmol/L (3.5-5.1); Protein, Total 6.2 g/dL (5.8-8.1); Sodium 141 mmol/L (136-145)
[2022-06-08 03:52] LABS: CKMB 0.8 ng/mL (0-6.6)
[2022-06-08] MEDS ORDERED: Piperacillin/Tazobactam 3.375 GM VIAL ONE ×2 (06:38→14:20)
[2022-06-08] MEDS ORDERED: Meropenem 1 GM in Sodium Chloride 0.9% 100 ML IVPB SCH (06:45)
[2022-06-08 07:31] LABS: Troponin I 0.037 ng/mL (< 0.028)
[2022-06-08] MEDS ORDERED: Levalbuterol HCl 0.63 MG/3 ML NEB NEB SCH (08:00)
[2022-06-08] MEDS ORDERED: HYDROcodone/Acetaminophen 5/325 mg Tablet PO PRN (08:12)
[2022-06-08] MEDS ORDERED: Acetaminophen 325 MG TAB PO PRN (08:12)
[2022-06-08] MEDS ORDERED: hydrALAZINE 20 MG/ML VIAL SLOW IVP PRN (08:12)
[2022-06-08] MEDS ORDERED: Nicotine 14 MG PATCH TD SCH (08:15)
[2022-06-08] MEDS ORDERED: Communication Order-Pharmacy FS SCH (08:39)
[2022-06-08] MEDS: Furosemide 40 MG TAB PO SCH (08:45)
[2022-06-08] MEDS: Diltiazem HCl CD 300 mg Capsule PO SCH (08:46)
[2022-06-08] MEDS: Escitalopram Oxalate 20 mg Tablet PO SCH (08:46)
[2022-06-08] MEDS ORDERED: Furosemide 20 MG TAB PO SCH (09:00)
[2022-06-08] MEDS ORDERED: Non-Formulary Item 1 EACH (Budesonide-Formoterol [Symbicort 160-4.5] 160 MG/4.5 MG Aer) INH SCH (09:00)
[2022-06-08] MEDS ORDERED: Apixaban 5 MG TAB PO SCH (09:00)
[2022-06-08] MEDS ORDERED: methylPREDNISolone Sod Succ 40 MG VIAL ONE (09:05)
[2022-06-08] MEDS ORDERED: Pantoprazole 40 MG VIAL ONE (09:05)
[2022-06-08] MEDS ORDERED: Morphine 2 MG/ML VIAL ONE (09:07)
[2022-06-08] MEDS: Pantoprazole 40 MG VIAL IVP SCH (09:14)
[2022-06-08] MEDS: Morphine 2 MG/ML VIAL SLOW IVP PRN (09:14)
[2022-06-08] MEDS: methylPREDNISolone Sod Succ 40 MG VIAL IVP SCH (09:14)
[2022-06-08] MEDS ORDERED: Iopamidol-370 76% 500 ML MDV (1 ML CHARGE) ONE (09:31)
[2022-06-08 09:49] LABS: Hemoglobin 10.8 g/dL (12.0-16.0); Platelet Count 226 10x3/uL (130-400)
[2022-06-08 10:04] LABS: Troponin I 0.036 ng/mL (< 0.028)
[2022-06-08] MEDS: Nicotine 7 MG PATCH TOP SCH (10:04)
[2022-06-08] MEDS: Piperacillin/Tazobactam 3.375 GM in Sodium Chloride 0.9% 100 ML IVPB SCH ×2 (14:27→21:04)
[2022-06-08] MEDS: Mometasone 200 MCG/Formoterol 5 MCG 120 PUFF INHALER INH SCH (18:15)
[2022-06-08] MEDS: Rosuvastatin 10 MG TAB PO SCH (19:55)
[2022-06-08] MEDS ORDERED: HumaLOG 300 UNITS/3 ML VIAL SC PRN (20:44)
[2022-06-08] MEDS ORDERED: Dextrose 5% in Water 1,000 ML IV PRN (20:44)
[2022-06-08] MEDS ORDERED: Dextrose 50% Abboject 50 ML SYRINGE SLOW IVP PRN (20:44)
[2022-06-08] MEDS ORDERED: Electrolyte Replacement Protocol 1 EACH FS PRN (20:47)
[2022-06-08] MEDS ORDERED: Sodium Chloride 0.45% 1,000 ML IV SCH (21:00)
[2022-06-08] MEDS ORDERED: Temazepam 15 MG CAP PO SCH ×2 (21:00)
[2022-06-08] MEDS: Levalbuterol HCl 0.63 MG/3 ML NEB NEB SCH (22:30)
[2022-06-08 23:19] LABS: Bacteria/HPF None Seen HPF (None Seen); Bilirubin Negative (Negative); Blood, Urine 3+ (Negative); CAUTI Indications for Culture Alt mental st,lethar; Clarity Extra Turbid (Clear); Glucose, Urine (Dipstick) Normal (Negative); Ketone, Urine 10 mg/dL (Negative); Leukocyte 250 Leu/uL (Negative); Nitrite Negative (Negative); Protein, Urine (Dipstick) 70 mg/dL (Neg-Trace); RBC/HPF Greater than 50 HPF (0-3); Specific Gravity, Urine 1.043 (1.002-1.036); Squamous Epithelial None Seen HPF (0-3); Urobilinogen Normal mg/dL (Less than 2); WBC/HPF Greater than 50 HPF (0-3); Yeast-Budding 2+ HPF (None Seen); pH, Urine 5.5 (5.0-9.0)
[2022-06-08 23:22] LABS: Urine Culture Reflex Yes Yes
[2022-06-09 00:17] LABS: Actual Bicarbonate (HCO3v) 30 mEq/L (22-28); Base Excess 5.1 mEq/L (-2.0 to +3.0); Calcium, Ionized (venous) 1.14 mmol/L (1.16-1.32); Chloride (VBG) 99 mmol/L (98-106); Hemoglobin (Hb) 10.2 g/dL (11.7-16.1); Potassium (VBG) 3.32 mmol/L (3.70-5.30); Sodium 138.8 mmol/L (133-146); pH (venous) 7.42 (7.32-7.43)
[2022-06-09 04:09] LABS: #Lymphocytes 0.5 thou/uL (1.20-3.40); #Monocytes 0.4 thou/uL (0.11-0.59); %Basophils 0.1 % (0.0-1.0); %Eosinophils 0.3 % (0.0-10.0); %Monocytes 4.3 % (0.0-10.0); %Neutrophils 89.4 % (42.0-75.0); Hemoglobin 9.5 g/dL (12.0-16.0); Mean Corpuscular HGB CONC 31.6 g/dL (32.0-36.0); Mean Corpuscular Hemoglobin 28.1 pg (27.0-31.0); Mean Corpuscular Volume 88.9 fl (78.0-98.0); Mean Platelet Volume 7.8 fL (7.4-10.4); Platelet Count 246 10x3/uL (130-400); RBC Distribution Width 15.8 % (11.5-14.5); Red Blood Cell (RBC) Count 3.36 mill/uL (4.20-5.40); White Blood Cell (WBC) Count 8.9 10x3/uL (4.8-10.8)
[2022-06-09 04:29] LABS: Anion Gap 13 mmol/L (10-20); BUN (Urea Nitrogen) 17 mg/dL (9.8-20.1); Calc. Creatinine Clearance 55 mL/min (70-130); Calcium 8.9 mg/dL (7.8-10.44); Carbon Dioxide 33 mmol/L (23-31); Chloride 100 mmol/L (98-107); Estimated GFR 59; Glucose 122 mg/dL (83-110); Potassium 3.3 mmol/L (3.5-5.1); Sodium 143 mmol/L (136-145)
[2022-06-09] MEDS: Piperacillin/Tazobactam 3.375 GM in Sodium Chloride 0.9% 100 ML IVPB SCH ×3 (05:11→21:30)
[2022-06-09] MEDS: Potassium Chloride 20 MEQ in Premix Bag 1 BAG IVPB SCH ×2 (05:38→08:54)
[2022-06-09] MEDS: Mometasone 200 MCG/Formoterol 5 MCG 120 PUFF INHALER INH SCH ×2 (06:19→19:10)
[2022-06-09] MEDS: Levalbuterol HCl 0.63 MG/3 ML NEB NEB SCH (06:28)
[2022-06-09] MEDS: methylPREDNISolone Sod Succ 40 MG VIAL IVP SCH (08:53)
[2022-06-09] MEDS: Pantoprazole 40 MG VIAL IVP SCH (08:53)
[2022-06-09] MEDS: Doxycycline 100 MG in Sodium Chloride 0.9% 100 ML IVPB SCH ×2 (08:54→21:30)
[2022-06-09] MEDS: Nicotine 7 MG PATCH TOP SCH (09:00)
[2022-06-09] MEDS: Diltiazem HCl CD 300 mg Capsule PO SCH (09:09)
[2022-06-09] MEDS: Furosemide 40 MG TAB PO SCH (09:09)
[2022-06-09] MEDS: Escitalopram Oxalate 20 mg Tablet PO SCH (09:09)
[2022-06-09 09:10] VITALS: BP 125/64
[2022-06-09] MEDS: Lorazepam 2 MG/ML VIAL SLOW IVP PRN ×2 (09:10→18:06)
[2022-06-09 15:11] LABS: Anion Gap 14 mmol/L (10-20); BUN (Urea Nitrogen) 18 mg/dL (9.8-20.1); Calc. Creatinine Clearance 54 mL/min (70-130); Calcium 9.5 mg/dL (7.8-10.44); Carbon Dioxide 33 mmol/L (23-31); Chloride 100 mmol/L (98-107); Estimated GFR 58; Glucose 114 mg/dL (83-110); Potassium 3.6 mmol/L (3.5-5.1); Sodium 143 mmol/L (136-145)
[2022-06-09] MEDS: Rosuvastatin 10 MG TAB PO SCH (21:30)
[2022-06-10] MEDS: Lorazepam 2 MG/ML VIAL SLOW IVP PRN ×2 (00:37→22:06)
[2022-06-10] MEDS: Piperacillin/Tazobactam 3.375 GM in Sodium Chloride 0.9% 100 ML IVPB SCH ×3 (05:21→21:02)
[2022-06-10] MEDS: Mometasone 200 MCG/Formoterol 5 MCG 120 PUFF INHALER INH SCH ×2 (08:30→18:33)
[2022-06-10] MEDS: Diltiazem HCl CD 300 mg Capsule PO SCH (08:59)
[2022-06-10] MEDS ORDERED: Sterile Water 10 ML VIAL FS PRN (09:00)
[2022-06-10] MEDS: Escitalopram Oxalate 20 mg Tablet PO SCH (09:14)
[2022-06-10] MEDS: Nicotine 7 MG PATCH TOP SCH (09:15)
[2022-06-10] MEDS: Furosemide 40 MG TAB PO SCH (09:19)
[2022-06-10] MEDS: Morphine 2 MG/ML VIAL SLOW IVP PRN ×2 (10:29→16:24)
[2022-06-10] MEDS: Pantoprazole 40 MG VIAL IVP SCH (10:31)
[2022-06-10] MEDS: Doxycycline 100 MG in Sodium Chloride 0.9% 100 ML IVPB SCH ×2 (10:31→21:02)
[2022-06-10] MEDS: Ziprasidone 20 MG VIAL IM SCH ×2 (10:45→21:03)
[2022-06-10] MEDS: Rosuvastatin 10 MG TAB PO SCH (20:43)
[2022-06-11] MEDS ORDERED: Morphine 2 MG/ML VIAL SLOW IVP PRN (00:35)
[2022-06-11] MEDS: Morphine 2 MG/ML VIAL SLOW IVP PRN ×4 (06:52→21:37)
[2022-06-11 07:56] VITALS: TEMP 97.6
[2022-06-11] MEDS: Lorazepam 2 MG/ML VIAL SLOW IVP PRN (21:37)
[2022-06-12] MEDS: Lorazepam 2 MG/ML VIAL SLOW IVP PRN ×2 (01:15→09:09)
[2022-06-12 13:36] VITALS: BMI 28.2
[2022-06-13] MEDS: Morphine 2 MG/ML VIAL SLOW IVP PRN (03:57)
== END 2022-06-13 04:21 | disposition expired | DRG 177 ==
LOC: ERS 02:05 → ERHOLD 06:11 → OBSVTOIN 08:12 → IMCU/EMU 15:13
PROVIDERS: ADMIT Internal Medicine; ATTEND Family Medicine
PROC: 5A09457 Assistance with Respiratory Ventilation, 24-96 Consecutive Hours, Continuous Positive Airway Pressure (ICD-10-PCS; principal; 2022-06-08)
DX: J69.0 Pneumonitis due to inhalation of food and vomit (principal); G93.41 Metabolic encephalopathy; J96.21 Acute and chronic respiratory failure with hypoxia; J44.1 Chronic obstructive pulmonary disease with (acute) exacerbation; N39.0 Urinary tract infection, site not specified; J44.0 Chronic obstructive pulmonary disease with (acute) lower respiratory infection; Z66 Do not resuscitate; Z51.5 Encounter for palliative care; I10 Essential (primary) hypertension; E78.5 Hyperlipidemia, unspecified; I25.10 Atherosclerotic heart disease of native coronary artery without angina pectoris; Z96.652 Presence of left artificial knee joint; F17.210 Nicotine dependence, cigarettes, uncomplicated; Z79.82 Long term (current) use of aspirin; Z90.49 Acquired absence of other specified parts of digestive tract; Z90.710 Acquired absence of both cervix and uterus; Z88.0 Allergy status to penicillin; Z98.890 Other specified postprocedural states; Z79.899 Other long term (current) drug therapy
CPT/HCPCS: 36415; 36416; 71045; 71275; 74177; 80048; 81001; 82553; 82805; 83605; 83880; 84145; 84484; 85025; 87040; 87086; 93005; 94640; 94660; C9113; G0378; J1650; J2060; J2185; J2272; J2543; J2920; J3475; J3480; J3490; J7611; J7614; Q9967